=== PATIENT | male | born 1945 | race Asian ===

== ENCOUNTER 2017-12-26 11:36 | Inpatient (IN) | payer MEDICARE, MEDICAID ==
[~2017-12-26] VITALS: Ht 157.5 cm; Wt 74.1 kg
[2017-12-26] MEDS: AMIODARONE HCL 900 MG in DEXTROSE 500 ML IV SCH (00:30)
[~2017-12-26 11:36] MED LIST: ALBU0.084; PRED1PAK11; WARF5INJ PO
[2017-12-26 12:36] LABS: Basophils # (auto) 0 uL; Basophils % (auto) 0.8 % (0.0-2.0); Eosinophils # (auto) 0.3 uL; Eosinophils % (auto) 6.2 % (0.0-7.0); Hematocrit 49.1 % (41.0-53.0); Hemoglobin 15.8 g/dL (13.5-17.5); Lymphocytes % (auto) 20.2 % (10.0-50.0); Mean Corpuscular Hemoglobin 27.2 pg (28.0-32.0); Mean Corpuscular Hgb Conc. 32.1 g/dL (32.0-36.0); Mean Corpuscular Volume 84.6 fL (80.0-100.0); Monocytes # (auto) 0.4 uL; Monocytes % (auto) 8.4 % (0.0-12.0); Neutrophils % (auto) 64.4 % (37.0-80.0); Platelet Count (auto) 153 10^3/uL (140-450); Red Cell Distribution Width 17.9 % (11.8-14.3); White Blood Cell 4.7 10^3/uL (4.4-10.8)
[2017-12-26 12:52] LABS: Albumin 3.3 g/dL (3.4-5.0); BUN/Creatinine Ratio 10.7; Bilirubin, Total 1.7 mg/dL (0.2-1.0); Calcium 7.9 mg/dL (8.5-10.1); Magnesium 2.3 mg/dL (1.6-2.6); Potassium 3.7 mmol/L (3.5-5.1); Total Protein 7.4 g/dL (6.4-8.2)
[2017-12-26] MEDS ORDERED: SODIUM CHLORIDE 0.9% 500 ML IVB ONE (14:16)
[2017-12-26] MEDS ORDERED: cefTRIAXone 1GM/10ml IVPUSH 10 ML IV ONE (14:30)
[2017-12-26 14:39] LABS: Urine Bacteria NONE SEEN /hpf (None Seen); Urine Blood Negative /uL (Negative); Urine Mucus FEW (None Seen); Urine WBC 1 /hpf (0 - 3)
[2017-12-26] MEDS ORDERED: ALBUTEROL SULF 2.5 MG/0.5ML(0.5%) NEB SOLN NEB PRN (14:45)
[2017-12-26] MEDS ORDERED: OSELTAMIVIR 75 MG CAP PO ONE (14:45)
[2017-12-26] MEDS ORDERED: PROMETHAZINE HCL 25 MG/ML 1ML IV PRN (14:45)
[2017-12-26] MEDS ORDERED: LACTULOSE 20Gm/30ML SOLN PO PRN (14:45)
[2017-12-26] MEDS ORDERED: DEXTROSE (50%) 50ML SYRG IV PRN (14:45)
[2017-12-26] MEDS ORDERED: MORPHINE SULF INJ 2 MG/ML SYRINGE 1ML IV PRN ×2 (14:45→15:45)
[2017-12-26] MEDS ORDERED: TEMAZEPAM 15 MG CAP PO PRN (14:45)
[2017-12-26] MEDS ORDERED: NITROGLYCERIN 0.4 MG SL TAB SL PRN (14:45)
[2017-12-26] MEDS ORDERED: ACETAMINOPHEN 500 MG TAB PO PRN (14:45)
[2017-12-26] MEDS ORDERED: LORazepam 0.5 MG TAB PO PRN (14:45)
[2017-12-26] MEDS ORDERED: DILTIAZEM HCL 25 MG/5 ML VIAL IV ONE (15:00)
[2017-12-26 15:11] LABS: INR 1.48 (0.9-1.15); Partial Thromboplastin Time 33.8 sec (22.64-33.71); Prothrombin Time 16.2 sec (9.37-12.3)
[2017-12-26] MEDS ORDERED: CARVEDILOL 3.125 MG TAB PO ONE (15:15)
[2017-12-26] MEDS: CARVEDILOL 3.125 MG TAB PO SCH ×2 (15:51→22:28)
[2017-12-26] MEDS: SODIUM CHLORIDE 0.9% 1,000 ML IV SCH (15:54)
[2017-12-26] MEDS: methylPREDNISolone SOD SUCC 40 MG/ML VL IV SCH (15:54)
[2017-12-26] MEDS: FUROSEMIDE 40 MG/4 ML VIAL IV SCH (15:55)
[2017-12-26] MEDS: POTASSIUM CHL 20 Meq TABLET PO SCH (15:55)
[2017-12-26] MEDS: ENOXAPARIN SOD 40 MG/0.4 ML SYRINGE SC SCH (15:56)
[2017-12-26] MEDS: ENALAPRIL MALEATE 2.5 MG TAB PO SCH (16:02)
[2017-12-26] MEDS: AZITHROMYCIN 500MG/ 250ML 250 ML IV SCH (16:02)
[2017-12-26] MEDS ORDERED: WARFARIN SODIUM 2 MG TAB PO ONE (17:00)
[2017-12-26] MEDS ORDERED: AMIODARONE HCL 900 MG in DEXTROSE 500 ML IV SCH (17:26)
[2017-12-26] MEDS ORDERED: AMIODARONE HCL 150 MG in D5W 5% 100 ML IV ONE (17:30)
[2017-12-26] MEDS: IPRATROPIUM BROM 0.5 MG/2.5ML INH SOL NEB SCH (18:27)
[2017-12-26] MEDS: ALBUTEROL SULF 2.5 MG/0.5ML(0.5%) NEB SOLN NEB SCH (18:27)
[2017-12-26] MEDS: ACCU-CHEK COMFORT CURVE STRIP VI SCH (18:40)
[2017-12-26] MEDS ORDERED: CARVEDILOL 3.125 MG TAB PO SCH (22:00)
[2017-12-26] MEDS: OSELTAMIVIR 75 MG CAP PO SCH (22:00)
[2017-12-27] VITALS (29 sets, daily range): BP systolic 56–120; BP diastolic 41–92
[2017-12-27] MEDS: IPRATROPIUM BROM 0.5 MG/2.5ML INH SOL NEB SCH ×4 (00:12→18:00)
[2017-12-27] MEDS: ALBUTEROL SULF 2.5 MG/0.5ML(0.5%) NEB SOLN NEB SCH ×4 (00:12→18:00)
[2017-12-27] MEDS: MIDAZOLAM DRIP 50 mg/50mL 50 ML IV SCH ×3 (02:00→22:15)
[2017-12-27] MEDS: methylPREDNISolone SOD SUCC 40 MG/ML VL IV SCH (02:45)
[2017-12-27] MEDS: SODIUM CHLORIDE 0.9% 1,000 ML IV SCH (04:08)
[2017-12-27] MEDS: ACCU-CHEK COMFORT CURVE STRIP VI SCH ×4 (06:00→17:57)
[2017-12-27 06:02] LABS: INR 1.63 (0.9-1.15); Partial Thromboplastin Time 30.3 sec (22.64-33.71); Prothrombin Time 17.8 sec (9.37-12.3)
[2017-12-27 06:21] LABS: BUN/Creatinine Ratio 9.6; Bilirubin, Total 1.7 mg/dL (0.2-1.0); Calcium 7.7 mg/dL (8.5-10.1); Potassium 4.6 mmol/L (3.5-5.1); Total Protein 6.5 g/dL (6.4-8.2)
[2017-12-27] MEDS ORDERED: cefTRIAXone 1GM/10ml IVPUSH 10 ML IV SCH (09:00)
[2017-12-27] MEDS: OSELTAMIVIR 75 MG CAP PO SCH (10:00)
[2017-12-27] MEDS: FUROSEMIDE 40 MG/4 ML VIAL IV SCH ×2 (10:00→12:30)
[2017-12-27] MEDS: ENOXAPARIN SOD 40 MG/0.4 ML SYRINGE SC SCH (10:00)
[2017-12-27] MEDS ORDERED: PANTOPRAZOLE 40 MG TAB PO SCH (10:00)
[2017-12-27] MEDS: AZITHROMYCIN 500MG/ 250ML 250 ML IV SCH (10:25)
[2017-12-27] MEDS: CARVEDILOL 3.125 MG TAB PO SCH ×2 (10:26→22:00)
[2017-12-27] MEDS: POTASSIUM CHL 20 Meq TABLET PO SCH (10:27)
[2017-12-27] MEDS: ENALAPRIL MALEATE 2.5 MG TAB PO SCH (10:30)
[2017-12-27] MEDS ORDERED: MIDAZOLAM HCL 5 MG/ML-1ML VIAL ONE (14:04)
[2017-12-27] MEDS ORDERED: MIDAZOLAM HCL 5 MG/ML-1ML VIAL IV ONE ×2 (14:15→14:30)
[2017-12-27] MEDS ORDERED: NOREPINEPHRINE 8 MG/250ML KIT 250 ML IV ONE (14:21)
[2017-12-27] MEDS ORDERED: MIDAZOLAM DRIP 50 mg/50mL 50 ML IV SCH (14:24)
[2017-12-27] MEDS ORDERED: SODIUM CHLORIDE 0.9% 1,000 ML IV SCH (14:30)
[2017-12-27] MEDS: NOREPINEPHRINE 8 MG/250ML KIT 250 ML IV SCH (14:45)
[2017-12-27] MEDS ORDERED: PROPOFOL 100 ML IV ONE (15:02)
[2017-12-27] MEDS ORDERED: FAMOTIDINE (10MG/ML) 2ML VL IV ONE (15:15)
[2017-12-27] MEDS ORDERED: WARFARIN SODIUM 2 MG TAB PO ONE (17:00)
[2017-12-27] MEDS ORDERED: ENOXAPARIN SOD 80 MG/0.8ML SYRINGE SC ONE ×2 (18:15)
[2017-12-27] MEDS: PROPOFOL 100 ML IV SCH (21:45)
[2017-12-27] MEDS: NITROGLYCERIN 2% OINT 1GM PKG TD SCH ×2 (22:00→23:00)
[2017-12-27] MEDS ORDERED: NITROGLYCERIN 2% OINT 1GM PKG TD ONE (23:06)
[2017-12-27] MEDS: AMIODARONE HCL 900 MG in DEXTROSE 500 ML IV SCH (23:26)
[2017-12-28] VITALS (96 sets, daily range): BP systolic 55–162; BP diastolic 32–114
[2017-12-28] MEDS: AMIODARONE HCL 900 MG in DEXTROSE 500 ML IV SCH (00:33)
[2017-12-28] MEDS: NITROGLYCERIN 2% OINT 1GM PKG TD SCH ×7 (01:00→21:45)
[2017-12-28] MEDS: MIDAZOLAM DRIP 50 mg/50mL 50 ML IV SCH ×3 (03:00→22:00)
[2017-12-28 04:28] LABS: Partial Thromboplastin Time 45.9 sec (22.64-33.71); Prothrombin Time 44.2 sec (9.37-12.3)
[2017-12-28] MEDS: ACCU-CHEK COMFORT CURVE STRIP VI SCH ×2 (06:22)
[2017-12-28] MEDS: IPRATROPIUM BROM 0.5 MG/2.5ML INH SOL NEB SCH ×4 (06:24→19:09)
[2017-12-28] MEDS: ALBUTEROL SULF 2.5 MG/0.5ML(0.5%) NEB SOLN NEB SCH ×2 (06:25)
[2017-12-28 08:55] LABS: Basophils # (auto) 0 uL; Basophils % (auto) 0.4 % (0.0-2.0); Eosinophils # (auto) 0 uL; Eosinophils % (auto) 0.2 % (0.0-7.0); Hematocrit 48.2 % (41.0-53.0); Hemoglobin 16.1 g/dL (13.5-17.5); Lymphocytes # (auto) 1.1 uL; Lymphocytes % (auto) 11.3 % (10.0-50.0); Mean Corpuscular Hemoglobin 27.5 pg (28.0-32.0); Mean Corpuscular Hgb Conc. 33.4 g/dL (32.0-36.0); Mean Corpuscular Volume 82.5 fL (80.0-100.0); Monocytes # (auto) 0.9 uL; Monocytes % (auto) 8.7 % (0.0-12.0); Neutrophils # (auto) 7.8 uL; Neutrophils % (auto) 79.4 % (37.0-80.0); Nucleated Red Blood Cells % 0.5 %; Platelet Count (auto) 158 10^3/uL (140-450); Red Blood Cells 5.84 10^6/uL (4.5-5.90); Red Cell Distribution Width 16.9 % (11.8-14.3); White Blood Cell 9.8 10^3/uL (4.4-10.8)
[2017-12-28 09:10] LABS: Albumin 2.9 g/dL (3.4-5.0); BUN/Creatinine Ratio 10.5; Bilirubin, Total 1.1 mg/dL (0.2-1.0); Calcium 8.1 mg/dL (8.5-10.1); Potassium 4.2 mmol/L (3.5-5.1); Total Protein 6.5 g/dL (6.4-8.2)
[2017-12-28] MEDS ORDERED: FAMOTIDINE (10MG/ML) 2ML VL IV SCH (10:00)
[2017-12-28] MEDS ORDERED: ENOXAPARIN SOD 80 MG/0.8ML SYRINGE SC SCH (10:00)
[2017-12-28] MEDS: FREE WATER GT SCH ×4 (10:00→21:45)
[2017-12-28] MEDS ORDERED: BISACODYL 10 MG RECT SUPP PR PRN (10:30)
[2017-12-28] MEDS ORDERED: BISACODYL 10 MG RECT SUPP PR ONE (10:30)
[2017-12-28] MEDS ORDERED: POTASSIUM CHL 10% (20 MEQ/15ML) 15ml ORAL SOLN GT ONE (10:45)
[2017-12-28] MEDS ORDERED: PANTOPRAZOLE 40 MG/10 ML VIAL IV ONE (10:45)
[2017-12-28] MEDS: BUMETANIDE (0.25 MG/ML) INJ 10ML IV SCH ×2 (10:50→18:00)
[2017-12-28] MEDS: LEVALBUTEROL HCL 1.25 MG/3 ML NEB NEB SCH ×2 (11:45→14:00)
[2017-12-28] MEDS: NOREPINEPHRINE 8 MG/250ML KIT 250 ML IV SCH (14:30)
[2017-12-28] MEDS: PROPOFOL 100 ML IV SCH (15:00)
[2017-12-28] MEDS: methylPREDNISolone SOD SUCC 40 MG/ML VL IV SCH ×2 (19:25→23:57)
[2017-12-28] MEDS: HYDROcodone-ACET 5/325MG TAB PO PRN (22:29)
[2017-12-29] VITALS (94 sets, daily range): BP systolic 85–161; BP diastolic 46–89
[2017-12-29] MEDS: IPRATROPIUM BROM 0.5 MG/2.5ML INH SOL NEB SCH ×4 (00:23→18:45)
[2017-12-29] MEDS: NITROGLYCERIN 2% OINT 1GM PKG TD SCH ×6 (00:34→21:00)
[2017-12-29] MEDS: PROPOFOL 100 ML IV SCH (00:35)
[2017-12-29] MEDS: FREE WATER GT SCH ×6 (02:00→22:00)
[2017-12-29 03:50] LABS: Basophils # (auto) 0 uL; Eosinophils # (auto) 0 uL; Hemoglobin 16.3 g/dL (13.5-17.5); Monocytes # (auto) 0.1 uL
[2017-12-29 03:53] LABS: Lymphocytes # (auto) 0.7 uL; Mean Corpuscular Hemoglobin 27.3 pg (28.0-32.0); Mean Corpuscular Hgb Conc. 33.2 g/dL (32.0-36.0); Mean Corpuscular Volume 82.2 fL (80.0-100.0); Monocytes % (auto) 1.8 % (0.0-12.0); Neutrophils # (auto) 6.1 uL; Neutrophils % (auto) 88.2 % (37.0-80.0); Platelet Count (auto) 151 10^3/uL (140-450); Red Blood Cells 5.96 10^6/uL (4.5-5.90); Red Cell Distribution Width 16.6 % (11.8-14.3)
[2017-12-29 04:14] LABS: Partial Thromboplastin Time 43.5 sec (22.64-33.71); Prothrombin Time 82.3 sec (9.37-12.3)
[2017-12-29 04:18] LABS: INR 7.4 (0.9-1.15)
[2017-12-29 04:24] LABS: Albumin 2.8 g/dL (3.4-5.0); BUN/Creatinine Ratio 10.4; Calcium 7.8 mg/dL (8.5-10.1); Potassium 4.5 mmol/L (3.5-5.1); Total Protein 6.5 g/dL (6.4-8.2)
[2017-12-29] MEDS: MIDAZOLAM DRIP 50 mg/50mL 50 ML IV SCH (05:38)
[2017-12-29] MEDS: methylPREDNISolone SOD SUCC 40 MG/ML VL IV SCH ×3 (05:40→18:19)
[2017-12-29] MEDS: LEVALBUTEROL HCL 1.25 MG/3 ML NEB NEB SCH ×2 (05:52→18:45)
[2017-12-29] MEDS: BUMETANIDE (0.25 MG/ML) INJ 10ML IV SCH (05:56)
[2017-12-29] MEDS ORDERED: PHYTONADIONE (VIT K)10 MG/ML 1ML VIAL SUBCUT ONE (06:15)
[2017-12-29] MEDS ORDERED: ENOXAPARIN SOD 80 MG/0.8ML SYRINGE SC SCH (10:00)
[2017-12-29] MEDS ORDERED: POTASSIUM CHL 10% (20 MEQ/15ML) 15ml ORAL SOLN GT SCH (10:00)
[2017-12-29] MEDS: PANTOPRAZOLE 40 MG/10 ML VIAL IV SCH (10:30)
[2017-12-29 12:29] LABS: Prothrombin Time 63.5 sec (9.37-12.3)
[2017-12-29 12:31] LABS: INR 5.72 (0.9-1.15)
[2017-12-29] MEDS ORDERED: PHYTONADIONE ORAL Susp 10 mg/10ml PO ONE (13:30)
[2017-12-29] MEDS: NOREPINEPHRINE 8 MG/250ML KIT 250 ML IV SCH (14:30)
[2017-12-29] MEDS: AMIODARONE HCL 900 MG in DEXTROSE 500 ML IV SCH (23:26)
[2017-12-30] VITALS (62 sets, daily range): BP systolic 92–135; BP diastolic 30–90
[2017-12-30] MEDS: IPRATROPIUM BROM 0.5 MG/2.5ML INH SOL NEB SCH ×4 (00:20→19:55)
[2017-12-30] MEDS: FREE WATER GT SCH ×2 (02:00→06:00)
[2017-12-30 03:31] LABS: Basophils # (auto) 0 uL; Eosinophils # (auto) 0 uL; Hemoglobin 16.8 g/dL (13.5-17.5); Lymphocytes # (auto) 0.5 uL; Lymphocytes % (auto) 6.7 % (10.0-50.0); Mean Corpuscular Hemoglobin 27.2 pg (28.0-32.0); Mean Corpuscular Volume 81.8 fL (80.0-100.0); Monocytes # (auto) 0.2 uL; Red Blood Cells 6.19 10^6/uL (4.5-5.90); White Blood Cell 7.7 10^3/uL (4.4-10.8)
[2017-12-30 03:35] LABS: Hematocrit 50.7 % (41.0-53.0); Mean Corpuscular Hgb Conc. 33.2 g/dL (32.0-36.0); Monocytes % (auto) 3.2 % (0.0-12.0); Neutrophils % (auto) 90.1 % (37.0-80.0); Platelet Count (auto) 147 10^3/uL (140-450); Red Cell Distribution Width 16.8 % (11.8-14.3)
[2017-12-30 03:37] LABS: INR 1.41 (0.9-1.15); Partial Thromboplastin Time 36.9 sec (22.64-33.71); Prothrombin Time 15.4 sec (9.37-12.3)
[2017-12-30] MEDS: LEVALBUTEROL HCL 1.25 MG/3 ML NEB NEB SCH ×3 (05:41→19:55)
[2017-12-30] MEDS: methylPREDNISolone SOD SUCC 40 MG/ML VL IV SCH ×4 (06:00→18:13)
[2017-12-30 06:41] LABS: Albumin 2.8 g/dL (3.4-5.0); BUN/Creatinine Ratio 10.9; Bilirubin, Total 1.5 mg/dL (0.2-1.0); Calcium 7.9 mg/dL (8.5-10.1); Potassium 4.3 mmol/L (3.5-5.1); Total Protein 6.9 g/dL (6.4-8.2)
[2017-12-30] MEDS ORDERED: HYDR-4683 PO (09:13)
[2017-12-30] MEDS ORDERED: CHOL20007 OR (09:14)
[2017-12-30] MEDS ORDERED: FLUT250M2 INH (09:14)
[2017-12-30] MEDS: HYDROcodone-ACET 5/325MG TAB PO PRN (09:43)
[2017-12-30] MEDS: PANTOPRAZOLE 40 MG/10 ML VIAL IV SCH (09:43)
[2017-12-30] MEDS ORDERED: SODIUM CHLORIDE 0.9% 2,100 ML IV ONE (10:00)
[2017-12-30] MEDS ORDERED: FREE WATER GT SCH (10:00)
[2017-12-30] MEDS: MIDAZOLAM DRIP 50 mg/50mL 50 ML IV SCH (14:06)
[2017-12-30] MEDS: PROPOFOL 100 ML IV SCH (15:19)
[2017-12-31] VITALS: BP 102/71
[2017-12-31] MEDS: methylPREDNISolone SOD SUCC 40 MG/ML VL IV SCH ×2 (00:19→05:20)
[2017-12-31] MEDS: IPRATROPIUM BROM 0.5 MG/2.5ML INH SOL NEB SCH ×2 (01:02→05:57)
[2017-12-31 05:39] LABS: Basophils # (auto) 0 uL; Eosinophils # (auto) 0 uL; Hematocrit 49.3 % (41.0-53.0); Hemoglobin 16.3 g/dL (13.5-17.5); Lymphocytes # (auto) 0.4 uL; Mean Corpuscular Hemoglobin 27.5 pg (28.0-32.0); Mean Corpuscular Volume 83.2 fL (80.0-100.0); Monocytes # (auto) 0.3 uL; Monocytes % (auto) 4.2 % (0.0-12.0); Neutrophils # (auto) 5.9 uL; Neutrophils % (auto) 89.8 % (37.0-80.0); Nucleated Red Blood Cells % 0.1 %; Platelet Count (auto) 136 10^3/uL (140-450); Red Blood Cells 5.93 10^6/uL (4.5-5.90); Red Cell Distribution Width 16.1 % (11.8-14.3); White Blood Cell 6.6 10^3/uL (4.4-10.8)
[2017-12-31] MEDS: LEVALBUTEROL HCL 1.25 MG/3 ML NEB NEB SCH (05:57)
[2017-12-31 06:00] LABS: Albumin 2.6 g/dL (3.4-5.0); BUN/Creatinine Ratio 15.2; Bilirubin, Total 1.1 mg/dL (0.2-1.0); Calcium 7.4 mg/dL (8.5-10.1); Potassium 4.4 mmol/L (3.5-5.1); Total Protein 6.2 g/dL (6.4-8.2)
[2017-12-31] MEDS ORDERED: predniSONE 20 MG TAB PO SCH (10:00)
[2017-12-31] MEDS: PANTOPRAZOLE 40 MG TAB PO SCH (10:35)
[2017-12-31] MEDS: METOPROLOL TARTRATE 25 MG TAB PO SCH ×2 (10:38→22:30)
[2017-12-31 11:19] LABS: INR 1.22 (0.9-1.15); Partial Thromboplastin Time 31.5 sec (22.64-33.71); Prothrombin Time 13.3 sec (9.37-12.3)
[2017-12-31] MEDS: BUDESONIDE (INHALATION) 0.5 MG/2 ML NEB NEB SCH ×2 (11:29→22:24)
[2017-12-31 12:00] VITALS: BP 105/74
[2017-12-31] MEDS ORDERED: SODIUM CHLORIDE 0.9% 500 ML IV ONE (12:30)
[2017-12-31] MEDS ORDERED: IPRATROPIUM BROM 0.5 MG/2.5ML INH SOL NEB PRN (14:00)
[2017-12-31 16:00] VITALS: BP 104/75
[2017-12-31] MEDS: DIGOXIN (250MCG/ML) 2 ML AMPULE IV SCH ×2 (16:12→22:30)
[2017-12-31 20:00] VITALS: BP 104/70
[2018-01-01] VITALS: BP 104/66
[2018-01-01 03:49] VITALS: BP 134/73
[2018-01-01] MEDS: DIGOXIN (250MCG/ML) 2 ML AMPULE IV SCH (04:45)
[2018-01-01 05:27] LABS: BUN/Creatinine Ratio 19.1; Calcium 7.4 mg/dL (8.5-10.1); Potassium 4.4 mmol/L (3.5-5.1)
[2018-01-01] MEDS: BUDESONIDE (INHALATION) 0.5 MG/2 ML NEB NEB SCH ×2 (06:54→22:00)
[2018-01-01 08:00] VITALS: BP 134/79
[2018-01-01] MEDS ORDERED: DIGOXIN 0.125 MG TAB PO SCH (10:00)
[2018-01-01 10:17] LABS: INR 1.15 (0.9-1.15); Partial Thromboplastin Time 26.7 sec (22.64-33.71); Prothrombin Time 12.6 sec (9.37-12.3)
[2018-01-01] MEDS: PANTOPRAZOLE 40 MG TAB PO SCH (10:30)
[2018-01-01] MEDS: METOPROLOL SUCCINATE XL 50 MG TAB PO SCH (10:31)
[2018-01-01] MEDS: FUROSEMIDE 40 MG TAB PO SCH (10:32)
[2018-01-01 12:00] VITALS: BP 132/75
[2018-01-01] MEDS ORDERED: WARFARIN SODIUM 5 MG TAB PO ONE (17:00)
[2018-01-01 17:02] VITALS: BP 108/71
[2018-01-01] MEDS: LEVALBUTEROL HCL 1.25 MG/3 ML NEB NEB PRN (22:00)
[2018-01-01 22:17] VITALS: BP 129/84
[2018-01-02 02:23] VITALS: BP 129/84
[2018-01-02 04:52] VITALS: BP 126/80
[2018-01-02 07:23] LABS: Calcium 8.5 mg/dL (8.5-10.1); INR 1.16 (0.9-1.15); Partial Thromboplastin Time 29.2 sec (22.64-33.71); Potassium 4.1 mmol/L (3.5-5.1); Prothrombin Time 12.7 sec (9.37-12.3)
[2018-01-02 07:26] LABS: BUN/Creatinine Ratio 21.9
[2018-01-02] MEDS: BUDESONIDE (INHALATION) 0.5 MG/2 ML NEB NEB SCH ×2 (07:30→23:00)
[2018-01-02] MEDS: LEVALBUTEROL HCL 1.25 MG/3 ML NEB NEB PRN (07:32)
[2018-01-02 07:46] LABS: Basophils # (auto) 0 uL; Eosinophils # (auto) 0.2 uL; Eosinophils % (auto) 2.5 % (0.0-7.0); Hematocrit 55.5 % (41.0-53.0); Hemoglobin 17.8 g/dL (13.5-17.5); Lymphocytes % (auto) 9.8 % (10.0-50.0); Mean Corpuscular Hemoglobin 27.1 pg (28.0-32.0); Mean Corpuscular Volume 84.7 fL (80.0-100.0); Monocytes # (auto) 1.1 uL; Monocytes % (auto) 11.4 % (0.0-12.0); Neutrophils # (auto) 7.4 uL; Neutrophils % (auto) 76.3 % (37.0-80.0); Nucleated Red Blood Cells % 0.1 %; Platelet Count (auto) 105 10^3/uL (140-450); Red Blood Cells 6.55 10^6/uL (4.5-5.90); Red Cell Distribution Width 16.3 % (11.8-14.3); White Blood Cell 9.7 10^3/uL (4.4-10.8)
[2018-01-02] MEDS: METOPROLOL SUCCINATE XL 50 MG TAB PO SCH (08:26)
[2018-01-02 09:09] VITALS: BP 145/84
[2018-01-02] MEDS: FUROSEMIDE 40 MG TAB PO SCH (09:31)
[2018-01-02] MEDS: PANTOPRAZOLE 40 MG TAB PO SCH (09:32)
[2018-01-02] MEDS: MILK OF MAGNESIA 30ML SUSP PO ONE ×2 (13:00→13:11)
[2018-01-02] MEDS: SOD CHL 0.45% 1,000 ML IV SCH (13:05)
[2018-01-02] MEDS: DOCUSATE SOD 100 MG CAP PO SCH ×2 (13:12→22:00)
[2018-01-02 14:10] VITALS: BP 130/82
[2018-01-02] MEDS ORDERED: WARFARIN SODIUM 2 MG TAB PO ONE (17:00)
[2018-01-02 17:21] VITALS: BP 135/69
[2018-01-02 22:26] VITALS: BP 117/82
[2018-01-03 05:09] VITALS: BP 121/84
[2018-01-03 05:55] LABS: Basophils # (auto) 0 uL; Eosinophils # (auto) 0.6 uL; Hemoglobin 17.1 g/dL (13.5-17.5); Lymphocytes # (auto) 1.1 uL; Mean Corpuscular Hemoglobin 27.3 pg (28.0-32.0); Nucleated Red Blood Cells % 0.1 %
[2018-01-03 05:59] LABS: Eosinophils % (auto) 5.8 % (0.0-7.0); Hematocrit 52.9 % (41.0-53.0); Lymphocytes % (auto) 11.1 % (10.0-50.0); Mean Corpuscular Hgb Conc. 32.3 g/dL (32.0-36.0); Mean Corpuscular Volume 84.4 fL (80.0-100.0); Monocytes % (auto) 10.9 % (0.0-12.0); Neutrophils # (auto) 6.9 uL; Neutrophils % (auto) 72.2 % (37.0-80.0); Red Blood Cells 6.27 10^6/uL (4.5-5.90); White Blood Cell 9.5 10^3/uL (4.4-10.8)
[2018-01-03 06:01] LABS: INR 1.63 (0.9-1.15); Prothrombin Time 17.9 sec (9.37-12.3)
[2018-01-03 06:08] LABS: Potassium 3.9 mmol/L (3.5-5.1)
[2018-01-03 06:25] LABS: Platelet Count (auto) 96 10^3/uL (140-450)
[2018-01-03] MEDS: SOD CHL 0.45% 1,000 ML IV SCH (08:18)
[2018-01-03 08:20] LABS: Partial Thromboplastin Time 31.9 sec (22.64-33.71)
[2018-01-03] MEDS: METOPROLOL SUCCINATE XL 50 MG TAB PO SCH (08:24)
[2018-01-03 08:49] VITALS: BP 113/69
[2018-01-03] MEDS: DOCUSATE SOD 100 MG CAP PO SCH (09:41)
[2018-01-03] MEDS: PANTOPRAZOLE 40 MG TAB PO SCH (09:41)
[2018-01-03] MEDS: FUROSEMIDE 40 MG TAB PO SCH (09:42)
[2018-01-03] MEDS: BUDESONIDE (INHALATION) 0.5 MG/2 ML NEB NEB SCH ×2 (09:51→20:06)
[2018-01-03] MEDS ORDERED: DIGOXIN 0.25 MG TAB PO ONE ×2 (10:45→13:15)
[2018-01-03 11:54] VITALS: BP 92/65
[2018-01-03] MEDS ORDERED: METOPROLOL TARTRATE 50 MG TAB PO ONE (15:15)
[2018-01-03 15:48] VITALS: BP 100/62
[2018-01-03 16:23] VITALS: BP 112/74
[2018-01-03] MEDS ORDERED: WARFARIN SODIUM 2 MG TAB PO ONE (17:00)
== END 2018-01-03 20:25 | disposition home or self-care (01) | DRG 208 ==
LOC: ER 11:36 → TELE 11:37 → ICU WEST 12-27 22:52 → DOU IN ICU 12-30 19:32 → TELE-EAST 01-01 14:24
PROVIDERS: ADMIT Internal Medicine; ATTEND Internal Medicine
PROC: 5A09357 Assistance with Respiratory Ventilation, Less than 24 Consecutive Hours, Continuous Positive Airway Pressure (ICD-10-PCS; 2017-12-26)
PROC: 5A1945Z Respiratory Ventilation, 24-96 Consecutive Hours (ICD-10-PCS; principal; 2017-12-27)
PROC: 0BH17EZ Insertion of Endotracheal Airway into Trachea, Via Natural or Artificial Opening (ICD-10-PCS; 2017-12-27)
DX: J96.22 Acute and chronic respiratory failure with hypercapnia (principal); N17.0 Acute kidney failure with tubular necrosis; I50.43 Acute on chronic combined systolic (congestive) and diastolic (congestive) heart failure; E87.4 Mixed disorder of acid-base balance; E88.09 Other disorders of plasma-protein metabolism, not elsewhere classified; E11.65 Type 2 diabetes mellitus with hyperglycemia; D68.9 Coagulation defect, unspecified; I42.9 Cardiomyopathy, unspecified; N18.3 Chronic kidney disease, stage 3 (moderate); I13.0 Hypertensive heart and chronic kidney disease with heart failure and stage 1 through stage 4 chronic kidney disease, or unspecified chronic kidney disease; I47.1 Supraventricular tachycardia; R18.8 Other ascites; I48.0 Paroxysmal atrial fibrillation; J96.21 Acute and chronic respiratory failure with hypoxia; I25.10 Atherosclerotic heart disease of native coronary artery without angina pectoris; F41.9 Anxiety disorder, unspecified; G47.00 Insomnia, unspecified; J44.9 Chronic obstructive pulmonary disease, unspecified; I70.0 Atherosclerosis of aorta; I67.9 Cerebrovascular disease, unspecified; T45.515A Adverse effect of anticoagulants, initial encounter; K59.00 Constipation, unspecified; N40.0 Benign prostatic hyperplasia without lower urinary tract symptoms; Z82.49 Family history of ischemic heart disease and other diseases of the circulatory system; Z87.891 Personal history of nicotine dependence; Z79.01 Long term (current) use of anticoagulants; Z79.899 Other long term (current) drug therapy; Z86.711 Personal history of pulmonary embolism; Y92.89 Other specified places as the place of occurrence of the external cause
CPT/HCPCS: 31500; 36415; 36600; 51702; 71045; 74176; 76705; 80048; 80053; 80061; 81001; 82150; 82550; 82805; 82962; 83036; 83605; 83690; 83735; 83880; 84443; 84484; 85025; 85379; 85610; 85652; 85730; 87040; 87070; 87081; 87205; 87400; 93005; 93306; 93970; 94002; 94003; 94640; 94660; 94761; 96361; 96374; 96375; 97163; C9113; J2250; J2704; J3430; J3490; J7060

== ENCOUNTER 2018-04-16 17:13 | Inpatient (IN) | payer MEDICARE, MEDICAID ==
[~2018-04-16] VITALS: Ht 167.6 cm; Wt 72.9 kg
[~2018-04-16 17:13] MED LIST changes: +CHOL20007 OR; +FLUT250M2 INH; +HYDR-4683 PO; -PRED1PAK11
[2018-04-16 17:57] LABS: Basophils # (auto) 0.1 uL; Eosinophils # (auto) 0.3 uL; Hemoglobin 16.4 g/dL (13.5-17.5); Lymphocytes # (auto) 1.7 uL; Monocytes # (auto) 0.8 uL; Neutrophils # (auto) 4.7 uL; Red Cell Distribution Width 18.2 % (11.8-14.3); White Blood Cell 7.6 10^3/uL (4.4-10.8)
[2018-04-16 18:11] LABS: Basophils % (auto) 0.9 % (0.0-2.0); Hematocrit 51.1 % (41.0-53.0); Lymphocytes % (auto) 22.8 % (10.0-50.0); Mean Corpuscular Hemoglobin 25.8 pg (28.0-32.0); Mean Corpuscular Hgb Conc. 32.1 g/dL (32.0-36.0); Mean Corpuscular Volume 80.4 fL (80.0-100.0); Monocytes % (auto) 10.5 % (0.0-12.0); Neutrophils % (auto) 61.8 % (37.0-80.0); Nucleated Red Blood Cells % 0.1 %; Platelet Count (auto) 163 10^3/uL (140-450); Red Blood Cells 6.36 10^6/uL (4.5-5.90)
[2018-04-16 18:15] LABS: Albumin 3.1 g/dL (3.4-5.0); BUN/Creatinine Ratio 14.6; Calcium 8.2 mg/dL (8.5-10.1); INR 1.93 (0.9-1.15); Partial Thromboplastin Time 31.5 sec (22.64-33.71); Potassium 4.3 mmol/L (3.5-5.1); Prothrombin Time 21.2 sec (9.37-12.3)
[2018-04-16 18:26] LABS: Bilirubin, Total 1.8 mg/dL (0.2-1.0); Total Protein 7.6 g/dL (6.4-8.2)
[2018-04-16] MEDS ORDERED: OXYMETAZOLINE HCL 0.05 % NASAL SPRAY 15ML ONE (19:15)
[2018-04-16] MEDS ORDERED: FUROSEMIDE 20 MG/2 ML VIAL IV ONE (22:00)
[2018-04-17] VITALS (10 sets, daily range): BP systolic 107–123; BP diastolic 71–90
[2018-04-17] MEDS ORDERED: MORPHINE SULFATE 4 MG/ML SYR/VIAL IV PRN (00:15)
[2018-04-17] MEDS ORDERED: ONDANSETRON HCL 4 MG/2 ML VIAL IV PRN (00:15)
[2018-04-17] MEDS ORDERED: METOPROLOL TARTRATE 50 MG TAB PO ONE (00:15)
[2018-04-17] MEDS ORDERED: ACETAMINOPHEN 325 MG TAB PO PRN (00:15)
[2018-04-17] MEDS ORDERED: NITROGLYCERIN 0.4 MG SL TAB SL PRN (00:15)
[2018-04-17] MEDS ORDERED: HYDROcodone-ACET 5/325MG TAB PO PRN (00:15)
[2018-04-17] MEDS ORDERED: COCAINE HCL 4% TOP SOL 4ML TOP ONE ×2 (00:37→01:00)
[2018-04-17] MEDS ORDERED: DIGOXIN (250MCG/ML) 2 ML AMPULE IV ONE (01:15)
[2018-04-17 01:31] LABS: Hemoglobin 15.1 g/dL (13.5-17.5)
[2018-04-17 01:33] LABS: Hematocrit 47.7 % (41.0-53.0)
[2018-04-17] MEDS ORDERED: AMIODARONE HCL 150 MG in D5W 5% 100 ML IV ONE (03:15)
[2018-04-17] MEDS ORDERED: AMIODARONE HCL 900 MG in DEXTROSE 500 ML IV SCH (03:25)
[2018-04-17] MEDS ORDERED: AMIODARONE HCL (50 MG/ ML) 3 ML VIAL IV ONE (04:05)
[2018-04-17] MEDS: AMIODARONE HCL 900 MG in DEXTROSE 500 ML IV SCH (09:43)
[2018-04-17] MEDS: DIGOXIN 0.25 MG TAB PO SCH (10:00)
[2018-04-17] MEDS: ASPirin 81 mg TAB PO SCH (10:00)
[2018-04-17] MEDS ORDERED: METOPROLOL TARTRATE 50 MG TAB PO SCH (10:00)
[2018-04-17] MEDS: PANTOPRAZOLE 40 MG TAB PO SCH (10:40)
[2018-04-17] MEDS ORDERED: BUMETANIDE (0.25MG/ML) 4 ML VIAL IV ONE (10:45)
[2018-04-17] MEDS: FUROSEMIDE 40 MG TAB PO SCH (11:10)
[2018-04-17] MEDS ORDERED: WARFARIN SODIUM 2.5 MG TAB PO ONE (17:00)
[2018-04-17] MEDS: METOPROLOL TARTRATE 25 MG TAB PO SCH (22:21)
[2018-04-18] MEDS ORDERED: AMIODARONE HCL 900 MG IV ONE (02:09)
[2018-04-18] MEDS: AMIODARONE HCL 900 MG in DEXTROSE 500 ML IV SCH (02:10)
[2018-04-18 07:24] LABS: Basophils # (auto) 0 uL; Basophils % (auto) 0.4 % (0.0-2.0); Eosinophils # (auto) 0.2 uL; Eosinophils % (auto) 1.8 % (0.0-7.0); Hemoglobin 13.6 g/dL (13.5-17.5); Lymphocytes # (auto) 1.1 uL; Lymphocytes % (auto) 11.6 % (10.0-50.0); Mean Corpuscular Hemoglobin 25.4 pg (28.0-32.0); Mean Corpuscular Hgb Conc. 31.5 g/dL (32.0-36.0); Mean Corpuscular Volume 80.4 fL (80.0-100.0); Monocytes # (auto) 1.3 uL; Monocytes % (auto) 13.9 % (0.0-12.0); Neutrophils # (auto) 6.7 uL; Neutrophils % (auto) 72.3 % (37.0-80.0); Nucleated Red Blood Cells % 0.1 %; Platelet Count (auto) 141 10^3/uL (140-450); Red Blood Cells 5.35 10^6/uL (4.5-5.90); Red Cell Distribution Width 17.5 % (11.8-14.3); White Blood Cell 9.3 10^3/uL (4.4-10.8)
[2018-04-18 07:30] LABS: INR 1.94 (0.9-1.15)
[2018-04-18 08:11] LABS: Albumin 3.1 g/dL (3.4-5.0); BUN/Creatinine Ratio 15.7; Bilirubin, Total 2.1 mg/dL (0.2-1.0); Calcium 8.1 mg/dL (8.5-10.1); Potassium 4.3 mmol/L (3.5-5.1); Total Protein 7.3 g/dL (6.4-8.2)
[2018-04-18] MEDS: FUROSEMIDE 40 MG TAB PO SCH (10:00)
[2018-04-18] MEDS: ASPirin 81 mg TAB PO SCH (10:50)
[2018-04-18] MEDS: AMIODARONE HCL 200 MG TAB PO SCH ×2 (10:50→21:44)
[2018-04-18] MEDS: DIGOXIN 0.25 MG TAB PO SCH (10:50)
[2018-04-18] MEDS: PANTOPRAZOLE 40 MG TAB PO SCH (10:51)
[2018-04-18] MEDS: METOPROLOL TARTRATE 25 MG TAB PO SCH ×2 (10:52→21:44)
[2018-04-18] MEDS ORDERED: CHOL200039 PO (15:49)
[2018-04-18] MEDS ORDERED: ACE3T PO (15:49)
[2018-04-18] MEDS ORDERED: METO-158 PO (15:49)
[2018-04-18] MEDS ORDERED: PANT40TA2 PO (15:49)
[2018-04-18] MEDS ORDERED: FAMO-12 PO (15:49)
[2018-04-18] MEDS ORDERED: DIGO1TAB37 PO (15:49)
[2018-04-18] MEDS ORDERED: WARF4TAB33 PO (15:49)
[2018-04-18] MEDS ORDERED: FURO40TA4 PO (15:49)
[2018-04-18] MEDS ORDERED: WARF5TAB71 PO (15:49)
[2018-04-18 16:32] VITALS: BP 102/68
[2018-04-18] MEDS ORDERED: WARFARIN SODIUM 1 MG TAB PO ONE (17:00)
[2018-04-18 22:00] VITALS: BP 119/80
[2018-04-19] VITALS (8 sets, daily range): BP systolic 99–117; BP diastolic 50–72
[2018-04-19 06:36] LABS: Basophils # (auto) 0 uL; Eosinophils # (auto) 0.1 uL; Lymphocytes # (auto) 1.1 uL; Monocytes # (auto) 1.1 uL; Nucleated Red Blood Cells % 0.1 %; White Blood Cell 8.9 10^3/uL (4.4-10.8)
[2018-04-19 06:39] LABS: Basophils % (auto) 0.6 % (0.0-2.0); Eosinophils % (auto) 1.3 % (0.0-7.0); Hematocrit 41.7 % (41.0-53.0); Hemoglobin 13.6 g/dL (13.5-17.5); Lymphocytes % (auto) 12.3 % (10.0-50.0); Mean Corpuscular Hemoglobin 26.3 pg (28.0-32.0); Mean Corpuscular Hgb Conc. 32.7 g/dL (32.0-36.0); Mean Corpuscular Volume 80.4 fL (80.0-100.0); Monocytes % (auto) 12.1 % (0.0-12.0); Neutrophils # (auto) 6.6 uL; Neutrophils % (auto) 73.7 % (37.0-80.0); Platelet Count (auto) 132 10^3/uL (140-450); Red Blood Cells 5.19 10^6/uL (4.5-5.90); Red Cell Distribution Width 17.4 % (11.8-14.3)
[2018-04-19 06:41] LABS: INR 2.4 (0.9-1.15); Partial Thromboplastin Time 35.5 sec (23.78-33.04); Prothrombin Time 24.4 sec (9.27-12.13)
[2018-04-19 06:46] LABS: BUN/Creatinine Ratio 14.4; Calcium 8.1 mg/dL (8.5-10.1); Potassium 4.4 mmol/L (3.5-5.1)
[2018-04-19 06:48] LABS: Bilirubin, Total 1.9 mg/dL (0.2-1.0); Total Protein 7.2 g/dL (6.4-8.2)
[2018-04-19] MEDS: FUROSEMIDE 40 MG TAB PO SCH (10:00)
[2018-04-19] MEDS: METOPROLOL TARTRATE 25 MG TAB PO SCH ×2 (10:00→21:50)
[2018-04-19] MEDS ORDERED: acetaZOLAMIDE SODIUM 500 MG VL IV ONE (10:00)
[2018-04-19] MEDS: ASPirin 81 mg TAB PO SCH (10:41)
[2018-04-19] MEDS: PANTOPRAZOLE 40 MG TAB PO SCH (10:41)
[2018-04-19] MEDS: DIGOXIN 0.25 MG TAB PO SCH (10:41)
[2018-04-19] MEDS: AMIODARONE HCL 200 MG TAB PO SCH ×2 (10:42→21:51)
[2018-04-19] MEDS ORDERED: WARFARIN SODIUM 1 MG TAB PO ONE (17:00)
[2018-04-20] VITALS (7 sets, daily range): BP systolic 105–120; BP diastolic 65–73
[2018-04-20 07:00] LABS: Eosinophils # (auto) 0.2 uL; Eosinophils % (auto) 1.9 % (0.0-7.0); Hemoglobin 13.3 g/dL (13.5-17.5); Mean Corpuscular Volume 81.5 fL (80.0-100.0); Nucleated Red Blood Cells % 0.1 %
[2018-04-20 07:03] LABS: Basophils # (auto) 0 uL; Basophils % (auto) 0.4 % (0.0-2.0); Hematocrit 42.5 % (41.0-53.0); Lymphocytes % (auto) 11.8 % (10.0-50.0); Mean Corpuscular Hemoglobin 25.5 pg (28.0-32.0); Mean Corpuscular Hgb Conc. 31.3 g/dL (32.0-36.0); Monocytes # (auto) 1.1 uL; Monocytes % (auto) 12.5 % (0.0-12.0); Neutrophils # (auto) 6.5 uL; Neutrophils % (auto) 73.4 % (37.0-80.0); Platelet Count (auto) 144 10^3/uL (140-450); Red Blood Cells 5.22 10^6/uL (4.5-5.90); Red Cell Distribution Width 17.8 % (11.8-14.3); White Blood Cell 8.8 10^3/uL (4.4-10.8)
[2018-04-20 07:16] LABS: INR 2.7 (0.9-1.15); Partial Thromboplastin Time 39.3 sec (23.78-33.04); Potassium 4.6 mmol/L (3.5-5.1); Prothrombin Time 27.3 sec (9.27-12.13)
[2018-04-20 07:22] LABS: BUN/Creatinine Ratio 13.8; Calcium 8.3 mg/dL (8.5-10.1)
[2018-04-20 07:32] LABS: Bilirubin, Total 1.7 mg/dL (0.2-1.0); Total Protein 7.5 g/dL (6.4-8.2)
[2018-04-20] MEDS: METOPROLOL TARTRATE 25 MG TAB PO SCH ×2 (09:44→22:00)
[2018-04-20] MEDS: AMIODARONE HCL 200 MG TAB PO SCH ×2 (09:45→22:00)
[2018-04-20] MEDS: ASPirin 81 mg TAB PO SCH (09:45)
[2018-04-20] MEDS: FUROSEMIDE 40 MG TAB PO SCH (09:45)
[2018-04-20] MEDS: DIGOXIN 0.25 MG TAB PO SCH (09:46)
[2018-04-20] MEDS: PANTOPRAZOLE 40 MG TAB PO SCH (09:46)
[2018-04-21 05:00] VITALS: BP 111/72
[2018-04-21 06:06] LABS: INR 2.93 (0.9-1.15); Partial Thromboplastin Time 39.8 sec (23.78-33.04); Prothrombin Time 29.5 sec (9.27-12.13)
[2018-04-21 08:00] VITALS: BP 121/71
[2018-04-21 09:00] VITALS: BP 121/77
[2018-04-21] MEDS: FUROSEMIDE 40 MG TAB PO SCH (09:51)
[2018-04-21] MEDS: PANTOPRAZOLE 40 MG TAB PO SCH (09:51)
[2018-04-21] MEDS: ASPirin 81 mg TAB PO SCH (09:52)
[2018-04-21] MEDS: DIGOXIN 0.25 MG TAB PO SCH (09:53)
[2018-04-21] MEDS: AMIODARONE HCL 200 MG TAB PO SCH ×2 (09:53→22:17)
[2018-04-21] MEDS: METOPROLOL TARTRATE 25 MG TAB PO SCH ×2 (09:58→22:17)
[2018-04-21 13:00] VITALS: BP 116/72
[2018-04-21 16:56] VITALS: BP 130/86
[2018-04-21 22:00] VITALS: BP 127/83
[2018-04-22 05:00] VITALS: BP 122/79
[2018-04-22 06:44] LABS: INR 3.06 (0.9-1.15); Prothrombin Time 30.7 sec (9.27-12.13)
[2018-04-22 08:00] VITALS: BP 122/79
[2018-04-22] MEDS: AMIODARONE HCL 200 MG TAB PO SCH ×2 (10:36→22:00)
[2018-04-22] MEDS: PANTOPRAZOLE 40 MG TAB PO SCH (10:36)
[2018-04-22] MEDS: DIGOXIN 0.25 MG TAB PO SCH (10:37)
[2018-04-22] MEDS: FUROSEMIDE 40 MG TAB PO SCH (10:37)
[2018-04-22] MEDS: ASPirin 81 mg TAB PO SCH (10:38)
[2018-04-22] MEDS: METOPROLOL TARTRATE 25 MG TAB PO SCH ×2 (10:38→22:00)
[2018-04-22 12:00] VITALS: BP 92/49
[2018-04-22 17:00] VITALS: BP 96/66
[2018-04-22 22:20] VITALS: BP 96/66
[2018-04-22 22:51] VITALS: BP 88/55
[2018-04-23 02:52] VITALS: BP 88/55
[2018-04-23 05:38] VITALS: BP 105/57
[2018-04-23 05:53] LABS: INR 2.88 (0.9-1.15); Partial Thromboplastin Time 40.8 sec (23.78-33.04)
[2018-04-23 08:00] VITALS: BP 115/68
[2018-04-23 08:37] VITALS: BP 115/68
[2018-04-23] MEDS: PANTOPRAZOLE 40 MG TAB PO SCH (10:11)
[2018-04-23] MEDS: ASPirin 81 mg TAB PO SCH (10:12)
[2018-04-23] MEDS: AMIODARONE HCL 200 MG TAB PO SCH (10:12)
[2018-04-23] MEDS: METOPROLOL TARTRATE 25 MG TAB PO SCH (10:13)
[2018-04-23] MEDS: DIGOXIN 0.25 MG TAB PO SCH (10:13)
[2018-04-23] MEDS: FUROSEMIDE 40 MG TAB PO SCH (10:13)
[2018-04-23 12:22] VITALS: BP 98/58
[2018-04-23 16:44] VITALS: BP 112/55
[2018-04-23] MEDS ORDERED: WARFARIN SODIUM 1 MG TAB PO ONE (17:00)
== END 2018-04-23 18:20 | disposition home or self-care (01) | DRG 280 ==
LOC: ER 17:13 → EDBD 17:13 → TELE 17:14 → TELE-WESTW 04-18 14:19
PROVIDERS: ADMIT Nurse Practitioner; ATTEND Family Medicine
PROC: 30233L1 Transfusion of Nonautologous Fresh Plasma into Peripheral Vein, Percutaneous Approach (ICD-10-PCS; 2018-04-17)
PROC: 30233K1 Transfusion of Nonautologous Frozen Plasma into Peripheral Vein, Percutaneous Approach (ICD-10-PCS; 2018-04-17)
PROC: 5A09357 Assistance with Respiratory Ventilation, Less than 24 Consecutive Hours, Continuous Positive Airway Pressure (ICD-10-PCS; principal; 2018-04-19)
PROC: 5A09357 Assistance with Respiratory Ventilation, Less than 24 Consecutive Hours, Continuous Positive Airway Pressure (ICD-10-PCS; 2018-04-22)
DX: I13.0 Hypertensive heart and chronic kidney disease with heart failure and stage 1 through stage 4 chronic kidney disease, or unspecified chronic kidney disease (principal); I21.4 Non-ST elevation (NSTEMI) myocardial infarction; I50.43 Acute on chronic combined systolic (congestive) and diastolic (congestive) heart failure; J96.21 Acute and chronic respiratory failure with hypoxia; I48.2 Chronic atrial fibrillation; D68.59 Other primary thrombophilia; N18.3 Chronic kidney disease, stage 3 (moderate); Z99.81 Dependence on supplemental oxygen; J96.22 Acute and chronic respiratory failure with hypercapnia; J44.9 Chronic obstructive pulmonary disease, unspecified; R04.0 Epistaxis; Z79.01 Long term (current) use of anticoagulants; Z82.49 Family history of ischemic heart disease and other diseases of the circulatory system; Z87.891 Personal history of nicotine dependence; Z91.19 Patient's noncompliance with other medical treatment and regimen
CPT/HCPCS: 30901; 36415; 36600; 71045; 80053; 80162; 82805; 83735; 83880; 84484; 85014; 85018; 85025; 85610; 85730; 86850; 86900; 86901; 93005; 93306; 94660; 96365; 96375; J7060

== ENCOUNTER 2021-03-15 17:40 | Inpatient (IN) | payer MEDICARE, MEDICAID ==
[~2021-03-15] VITALS: Ht 170.2 cm; Wt 60.0 kg
[2021-03-15 06:00] VITALS: BP 131/65
[~2021-03-15 17:40] MED LIST changes: +ACE3T PO; -ALBU0.084; +CHOL200039 PO; -CHOL20007 OR; +DIGO1TAB37 PO; +FAMO-12 PO; +FURO40TA4 PO; -HYDR-4683 PO; +METO-158 PO; +PANT40TA2 PO; +WARF4TAB33 PO; -WARF5INJ PO; +WARF5TAB71 PO
[2021-03-15] MEDS ORDERED: AMIODARONE 450mg/250ml AE 250 ML IV ONE (17:46)
[2021-03-15] MEDS ORDERED: NOREPINEPHRINE 8 MG/250ML KIT 250 ML IV ONE (17:52)
[2021-03-15] MEDS ORDERED: EPINEPHrine HCL 250 ML IV ONE (18:05)
[2021-03-15] MEDS ORDERED: SODIUM BICARBONATE 8.4% INJ 50ML SYRINGE ONE (18:05)
[2021-03-15] MEDS ORDERED: SODIUM BICARBONATE 8.4 % INJ 50ML VIAL IV ONE (18:11)
[2021-03-15] MEDS ORDERED: AMIODARONE 450mg/250ml AE 250 ML IV SCH (18:15)
[2021-03-15] MEDS ORDERED: PIPERACILLIN-TAZOB 3.375GM 100 ML IV ONE (18:15)
[2021-03-15] MEDS ORDERED: SODIUM BICARB 50ML SYR 100 ML in SODIUM CHLORIDE 0.9% 1,000 ML IV ONE (18:30)
[2021-03-15 18:38] LABS: Hematocrit 51.5 % (41.0-53.0); Hemoglobin 15.7 g/dL (13.5-17.5); Mean Corpuscular Hgb Conc. 30.4 g/dL (32.0-36.0); White Blood Cell 6.7 10^3/uL (4.4-10.8)
[2021-03-15 18:40] LABS: Mean Corpuscular Hemoglobin 26.6 pg (28.0-32.0); Mean Corpuscular Volume 87.5 fL (80.0-100.0); Platelet Count (auto) 91 10^3/uL (140-450); Red Blood Cells 5.89 10^6/uL (4.5-5.90); Red Cell Distribution Width 16.4 % (11.8-14.3)
[2021-03-15 18:48] LABS: Band Neutrophils % (manual) 0; Basophils % (manual) 0 (0.0-2.0); Blast Cells 0; Calcium 9.8 mg/dL (8.5-10.1); Magnesium 2.6 mg/dL (1.6-2.6); Metamyelocytes % 0; Myelocytes % 0; Potassium 4.7 mmol/L (3.5-5.1); Promyelocytes % 0
[2021-03-15 18:51] LABS: BUN/Creatinine Ratio 10.7; Bilirubin, Total 0.9 mg/dL (0.2-1.0); Total Protein 6.3 g/dL (6.4-8.2)
[2021-03-15 19:14] LABS: INR 1.38 (0.9-1.15)
[2021-03-15 19:27] LABS: Partial Thromboplastin Time 82.8 sec (23.0-31.2)
[2021-03-15] MEDS: DOPamine 1600MCG/ML D5W 250 ML IV SCH ×2 (19:30→20:13)
[2021-03-15] MEDS: MIDAZOLAM DRIP 50 mg/50mL 50 ML IV SCH (19:50)
[2021-03-15 19:52] LABS: Eosinophils % (manual) 13 (0-7); Lymphocytes % (manual) 54 (10.0-50.0); Monocytes % (manual) 3 (0-12); Reactive Lymphocytes 5
[2021-03-15 20:10] VITALS: BP 112/48
[2021-03-15 21:26] VITALS: BP 112/48
[2021-03-15] MEDS: NOREPINEPHRINE 8 MG/250ML KIT 250 ML IV SCH (23:20)
[2021-03-15] MEDS ORDERED: VANCOMYCIN PER PHARMACY 0 MG IV SCH (23:45)
[2021-03-16] VITALS (95 sets, daily range): BP systolic 77–167; BP diastolic 39–94
[2021-03-16] MEDS ORDERED: ONDANSETRON HCL 4 MG/2 ML VIAL IV PRN
[2021-03-16] MEDS ORDERED: NITROGLYCERIN 0.4 MG SL TAB SL PRN
[2021-03-16] MEDS ORDERED: MORPHINE SULF INJ 2 MG/ML SYRINGE 1ML IV PRN
[2021-03-16] MEDS ORDERED: VANCOMYCIN 1GM/250ML 250 ML IV ONE (00:30)
[2021-03-16 01:46] LABS: Urine Bacteria MANY /hpf (None Seen); Urine Blood 3+ /uL (Negative); Urine Hyaline Cast MOD /lpf (0 - 2); Urine Specific Gravity 1.019 (1.001-1.035); Urine WBC 176 /hpf (0 - 3); Urine WBC Clumps PRESENT /hpf (None Seen)
[2021-03-16 04:51] LABS: Basophils # (auto) 0 10 ^3/uL (0-0.2); Basophils % (auto) 0.1 % (0.0-2.0); Eosinophils # (auto) 0 10 ^3/uL (0-0.8); Hematocrit 50.3 % (41.0-53.0); Hemoglobin 15.8 g/dL (13.5-17.5); Lymphocytes # (auto) 0.3 10 ^3/uL (0.4-5.4); Lymphocytes % (auto) 2.2 % (10.0-50.0); Mean Corpuscular Hemoglobin 26.8 pg (28.0-32.0); Mean Corpuscular Hgb Conc. 31.5 g/dL (32.0-36.0); Mean Corpuscular Volume 85.2 fL (80.0-100.0); Monocytes # (auto) 0.9 10 ^3/uL (0-1.3); Monocytes % (auto) 5.5 % (0.0-12.0); Neutrophils # (auto) 14.5 10 ^3/uL (1.6-8.6); Neutrophils % (auto) 92.2 % (37.0-80.0); Nucleated Red Blood Cells % 0.1 %; Platelet Count (auto) 88 10^3/uL (140-450); Red Cell Distribution Width 16.3 % (11.8-14.3); White Blood Cell 15.7 10^3/uL (4.4-10.8)
[2021-03-16 04:53] LABS: Lactic Acid w/Reflex 4.3 mmol/L (0.4-2.0)
[2021-03-16 05:09] LABS: Albumin 2.5 g/dL (3.4-5.0); Anion Gap 11 (5-15); Blood Urea Nitrogen 29 mg/dL (7-18); Calcium 7.8 mg/dL (8.5-10.1); Carbon Dioxide 24 mmol/L (21-32); Chloride 107 mmol/L (98-107); Glucose 213 mg/dL (74-106); Potassium 4.9 mmol/L (3.5-5.1); Sodium 142 mmol/L (136-145)
[2021-03-16 05:11] LABS: Alanine Aminotransferase 44 U/L (16-61); Alkaline Phosphatase 77 U/L (45-117); Aspartate Aminotransferase 85 U/L (15-37); Bilirubin, Total 1.7 mg/dL (0.2-1.0); GFR African American 42 mL/min; GFR Non-African American 35 mL/min; Total Protein 5.5 g/dL (6.4-8.2)
[2021-03-16 05:18] LABS: BUN/Creatinine Ratio 14.5
[2021-03-16] MEDS: PIPERACILLIN-TAZOB 3.375GM 100 ML IV SCH ×3 (05:54→21:09)
[2021-03-16] MEDS: FUROSEMIDE 20 MG/2 ML VIAL IV SCH ×2 (05:54→18:11)
[2021-03-16] MEDS: SODIUM CHLOR 0.9% PF (SALINE LOCK) 10ML VIAL/SYR IV SCH ×3 (05:54→21:09)
[2021-03-16 07:21] LABS: INR 1.38 (0.9-1.15); Partial Thromboplastin Time 30.6 sec (23.0-31.2)
[2021-03-16] MEDS ORDERED: HEPARIN SODIUM (PORCINE) 5000 UNITS/ML 1ML VIAL SC SCH (10:00)
[2021-03-16] MEDS: FAMOTIDINE (10MG/ML) 2ML VL IV SCH (10:08)
[2021-03-16] MEDS: MIDAZOLAM DRIP 50 mg/50mL 50 ML IV SCH ×3 (12:25→22:03)
[2021-03-16] MEDS: DOBUTamine 1000MCG/ML 250 ML IV SCH (12:52)
[2021-03-16] MEDS: NOREPINEPHRINE 8 MG/250ML KIT 250 ML IV SCH (18:00)
[2021-03-16] MEDS: ACETAMINOPHEN 650 mg PER 20.3 mL UD PO PRN (21:09)
[2021-03-16] MEDS: IPRATROPIUM BROM 0.5 MG/2.5ML INH SOL NEB SCH (22:21)
[2021-03-16] MEDS: ALBUTEROL SULF 2.5 MG/0.5ML(0.5%) NEB SOLN NEB SCH (22:22)
[2021-03-16] MEDS: BUDESONIDE (INHALATION) 0.5 MG/2 ML NEB NEB SCH (22:22)
[2021-03-17] VITALS (105 sets, daily range): BP systolic 93–141; BP diastolic 46–79
[2021-03-17] MEDS: ALBUTEROL SULF 2.5 MG/0.5ML(0.5%) NEB SOLN NEB SCH ×5 (02:52→22:10)
[2021-03-17] MEDS: IPRATROPIUM BROM 0.5 MG/2.5ML INH SOL NEB SCH ×5 (02:52→22:10)
[2021-03-17] MEDS: MIDAZOLAM DRIP 50 mg/50mL 50 ML IV SCH ×5 (03:22→22:50)
[2021-03-17 04:23] LABS: Basophils # (auto) 0 10 ^3/uL (0-0.2); Basophils % (auto) 0.1 % (0.0-2.0); Eosinophils # (auto) 0 10 ^3/uL (0-0.8); Lymphocytes # (auto) 0.4 10 ^3/uL (0.4-5.4); Mean Corpuscular Hemoglobin 26.7 pg (28.0-32.0); Neutrophils # (auto) 14.3 10 ^3/uL (1.6-8.6); White Blood Cell 15.4 10^3/uL (4.4-10.8)
[2021-03-17 04:26] LABS: Hematocrit 45.2 % (41.0-53.0); Hemoglobin 14.7 g/dL (13.5-17.5); Lymphocytes % (auto) 2.7 % (10.0-50.0); Mean Corpuscular Hgb Conc. 32.5 g/dL (32.0-36.0); Mean Corpuscular Volume 82.2 fL (80.0-100.0); Monocytes # (auto) 0.8 10 ^3/uL (0-1.3); Monocytes % (auto) 4.9 % (0.0-12.0); Neutrophils % (auto) 92.3 % (37.0-80.0); Nucleated Red Blood Cells % 0.2 %; Platelet Count (auto) 77 10^3/uL (140-450); Red Cell Distribution Width 15.6 % (11.8-14.3)
[2021-03-17 04:50] LABS: Calcium 7.6 mg/dL (8.5-10.1); Potassium 4.2 mmol/L (3.5-5.1)
[2021-03-17 04:58] LABS: Albumin 2.5 g/dL (3.4-5.0); BUN/Creatinine Ratio 16.5; Total Protein 5.4 g/dL (6.4-8.2)
[2021-03-17] MEDS: SODIUM CHLOR 0.9% PF (SALINE LOCK) 10ML VIAL/SYR IV SCH ×3 (05:48→22:00)
[2021-03-17] MEDS: FUROSEMIDE 20 MG/2 ML VIAL IV SCH ×2 (05:48→18:15)
[2021-03-17] MEDS: PIPERACILLIN-TAZOB 3.375GM 100 ML IV SCH (05:49)
[2021-03-17] MEDS ORDERED: DIGOXIN (250MCG/ML) 2 ML AMPULE IV ONE (08:00)
[2021-03-17] MEDS ORDERED: PROPOFOL 100 ML IV ONE (09:32)
[2021-03-17] MEDS: PROPOFOL 100 ML IV SCH (09:50)
[2021-03-17] MEDS: BUDESONIDE (INHALATION) 0.5 MG/2 ML NEB NEB SCH ×2 (10:00→22:10)
[2021-03-17] MEDS: DIGOXIN (250MCG/ML) 2 ML AMPULE IV SCH ×3 (10:23→22:39)
[2021-03-17] MEDS: FAMOTIDINE (10MG/ML) 2ML VL IV SCH (10:23)
[2021-03-17] MEDS: DOBUTamine 1000MCG/ML 250 ML IV SCH (10:30)
[2021-03-17] MEDS ORDERED: cefTRIAXone 1GM/50ML D5W 50 ML IV ONE (11:45)
[2021-03-17] MEDS ORDERED: VANCOMYCIN 1GM/250ML 250 ML IV ONE (12:00)
[2021-03-17] MEDS: ACETAMINOPHEN 650 mg PER 20.3 mL UD PO PRN (13:15)
[2021-03-17] MEDS: NOREPINEPHRINE 8 MG/250ML KIT 250 ML IV SCH (15:00)
[2021-03-18] VITALS (106 sets, daily range): BP systolic 88–138; BP diastolic 43–73
[2021-03-18] MEDS: IPRATROPIUM BROM 0.5 MG/2.5ML INH SOL NEB SCH ×6 (02:13→22:25)
[2021-03-18] MEDS: ALBUTEROL SULF 2.5 MG/0.5ML(0.5%) NEB SOLN NEB SCH ×6 (02:13→22:25)
[2021-03-18 04:16] LABS: Basophils # (auto) 0 10 ^3/uL (0-0.2); Basophils % (auto) 0.1 % (0.0-2.0); Eosinophils # (auto) 0.1 10 ^3/uL (0-0.8); Eosinophils % (auto) 0.9 % (0.0-7.0); Hematocrit 45.6 % (41.0-53.0); Hemoglobin 14.9 g/dL (13.5-17.5); Lymphocytes # (auto) 0.5 10 ^3/uL (0.4-5.4); Lymphocytes % (auto) 3.3 % (10.0-50.0); Mean Corpuscular Hgb Conc. 32.7 g/dL (32.0-36.0); Mean Corpuscular Volume 82.4 fL (80.0-100.0); Monocytes # (auto) 0.9 10 ^3/uL (0-1.3); Monocytes % (auto) 6.1 % (0.0-12.0); Neutrophils # (auto) 12.8 10 ^3/uL (1.6-8.6); Neutrophils % (auto) 89.6 % (37.0-80.0); Platelet Count (auto) 67 10^3/uL (140-450); Red Blood Cells 5.54 10^6/uL (4.5-5.90); Red Cell Distribution Width 15.9 % (11.8-14.3); White Blood Cell 14.3 10^3/uL (4.4-10.8)
[2021-03-18 04:47] LABS: Albumin 2.5 g/dL (3.4-5.0); Calcium 7.5 mg/dL (8.5-10.1); Potassium 4.5 mmol/L (3.5-5.1)
[2021-03-18 04:50] LABS: BUN/Creatinine Ratio 17.5; Bilirubin, Total 1.5 mg/dL (0.2-1.0); Total Protein 5.8 g/dL (6.4-8.2)
[2021-03-18] MEDS: SODIUM CHLOR 0.9% PF (SALINE LOCK) 10ML VIAL/SYR IV SCH ×3 (06:00→22:01)
[2021-03-18] MEDS: BUDESONIDE (INHALATION) 0.5 MG/2 ML NEB NEB SCH ×2 (06:34→18:45)
[2021-03-18] MEDS: FUROSEMIDE 20 MG/2 ML VIAL IV SCH ×2 (07:26→18:00)
[2021-03-18] MEDS: PROPOFOL 100 ML IV SCH (09:30)
[2021-03-18] MEDS: FAMOTIDINE (10MG/ML) 2ML VL IV SCH (10:52)
[2021-03-18] MEDS: cefTRIAXone 1GM/50ML D5W 50 ML IV SCH (10:52)
[2021-03-18] MEDS ORDERED: VANCOMYCIN 500 MG in D5W 5% 100 ML IV ONE (14:00)
[2021-03-18] MEDS: NOREPINEPHRINE 8 MG/250ML KIT 250 ML IV SCH (18:00)
[2021-03-18] MEDS: ACETAMINOPHEN 650 mg PER 20.3 mL UD PO PRN (20:48)
[2021-03-19] VITALS (108 sets, daily range): BP systolic 94–134; BP diastolic 50–72
[2021-03-19] MEDS: IPRATROPIUM BROM 0.5 MG/2.5ML INH SOL NEB SCH ×6 (02:27→21:59)
[2021-03-19] MEDS: ALBUTEROL SULF 2.5 MG/0.5ML(0.5%) NEB SOLN NEB SCH ×6 (02:27→21:59)
[2021-03-19 05:25] LABS: Basophils # (auto) 0 10 ^3/uL (0-0.2); Eosinophils # (auto) 0 10 ^3/uL (0-0.8); Eosinophils % (auto) 0.2 % (0.0-7.0); Lymphocytes # (auto) 0.5 10 ^3/uL (0.4-5.4); Mean Corpuscular Hemoglobin 26.4 pg (28.0-32.0); Neutrophils # (auto) 10.8 10 ^3/uL (1.6-8.6); White Blood Cell 12.3 10^3/uL (4.4-10.8)
[2021-03-19 05:28] LABS: Basophils % (auto) 0.2 % (0.0-2.0); Hemoglobin 15.1 g/dL (13.5-17.5); Lymphocytes % (auto) 3.9 % (10.0-50.0); Mean Corpuscular Hgb Conc. 32.1 g/dL (32.0-36.0); Mean Corpuscular Volume 82.2 fL (80.0-100.0); Monocytes % (auto) 8.2 % (0.0-12.0); Neutrophils % (auto) 87.5 % (37.0-80.0); Nucleated Red Blood Cells % 0.2 %; Platelet Count (auto) 76 10^3/uL (140-450); Red Blood Cells 5.72 10^6/uL (4.5-5.90); Red Cell Distribution Width 15.9 % (11.8-14.3)
[2021-03-19 05:44] LABS: Albumin 2.5 g/dL (3.4-5.0); Potassium 4.3 mmol/L (3.5-5.1)
[2021-03-19 05:48] LABS: BUN/Creatinine Ratio 22.7; Bilirubin, Total 1.8 mg/dL (0.2-1.0)
[2021-03-19] MEDS: SODIUM CHLOR 0.9% PF (SALINE LOCK) 10ML VIAL/SYR IV SCH ×3 (06:00→21:39)
[2021-03-19] MEDS: FUROSEMIDE 20 MG/2 ML VIAL IV SCH ×2 (06:00→17:44)
[2021-03-19] MEDS: PROPOFOL 100 ML IV SCH (09:30)
[2021-03-19] MEDS: cefTRIAXone 1GM/50ML D5W 50 ML IV SCH (09:52)
[2021-03-19] MEDS: FAMOTIDINE (10MG/ML) 2ML VL IV SCH (09:52)
[2021-03-19] MEDS ORDERED: VANCOMYCIN 500 MG in D5W 5% 100 ML IV ONE (10:00)
[2021-03-19] MEDS: SODIUM CHLORIDE 0.9% 1,000 ML IV SCH ×2 (10:34→11:57)
[2021-03-19] MEDS: BUDESONIDE (INHALATION) 0.5 MG/2 ML NEB NEB SCH ×2 (12:00→21:59)
[2021-03-19] MEDS: NOREPINEPHRINE 8 MG/250ML KIT 250 ML IV SCH (18:00)
[2021-03-19] MEDS: MIDAZOLAM DRIP 50 mg/50mL 50 ML IV SCH (18:00)
[2021-03-20] VITALS (92 sets, daily range): BP systolic 100–136; BP diastolic 50–73
[2021-03-20] MEDS: IPRATROPIUM BROM 0.5 MG/2.5ML INH SOL NEB SCH ×6 (02:11→22:16)
[2021-03-20] MEDS: ALBUTEROL SULF 2.5 MG/0.5ML(0.5%) NEB SOLN NEB SCH ×6 (02:11→22:16)
[2021-03-20 04:39] LABS: Basophils # (auto) 0 10 ^3/uL (0-0.2); Basophils % (auto) 0.3 % (0.0-2.0); Eosinophils # (auto) 0.2 10 ^3/uL (0-0.8); Eosinophils % (auto) 2.6 % (0.0-7.0); Hematocrit 44.6 % (41.0-53.0); Hemoglobin 14.5 g/dL (13.5-17.5); Lymphocytes # (auto) 0.4 10 ^3/uL (0.4-5.4); Lymphocytes % (auto) 4.9 % (10.0-50.0); Mean Corpuscular Hgb Conc. 32.6 g/dL (32.0-36.0); Mean Corpuscular Volume 82.8 fL (80.0-100.0); Monocytes # (auto) 0.8 10 ^3/uL (0-1.3); Monocytes % (auto) 10.1 % (0.0-12.0); Neutrophils # (auto) 6.8 10 ^3/uL (1.6-8.6); Neutrophils % (auto) 82.1 % (37.0-80.0); Nucleated Red Blood Cells % 0.2 %; Platelet Count (auto) 81 10^3/uL (140-450); Red Blood Cells 5.38 10^6/uL (4.5-5.90); Red Cell Distribution Width 16.2 % (11.8-14.3); White Blood Cell 8.3 10^3/uL (4.4-10.8)
[2021-03-20 04:56] LABS: Albumin 2.3 g/dL (3.4-5.0); Calcium 7.6 mg/dL (8.5-10.1); Potassium 4.1 mmol/L (3.5-5.1)
[2021-03-20 04:59] LABS: BUN/Creatinine Ratio 28.5; Bilirubin, Total 1.4 mg/dL (0.2-1.0); Total Protein 5.6 g/dL (6.4-8.2)
[2021-03-20] MEDS: FUROSEMIDE 20 MG/2 ML VIAL IV SCH ×2 (06:00→17:30)
[2021-03-20] MEDS: SODIUM CHLOR 0.9% PF (SALINE LOCK) 10ML VIAL/SYR IV SCH ×3 (06:08→21:55)
[2021-03-20] MEDS: BUDESONIDE (INHALATION) 0.5 MG/2 ML NEB NEB SCH ×2 (06:35→19:22)
[2021-03-20] MEDS: PROPOFOL 100 ML IV SCH (07:44)
[2021-03-20] MEDS: cefTRIAXone 1GM/50ML D5W 50 ML IV SCH (09:30)
[2021-03-20] MEDS: FAMOTIDINE (10MG/ML) 2ML VL IV SCH (09:30)
[2021-03-20] MEDS ORDERED: VANCOMYCIN 750mg/250ml 250 ML IV ONE (10:00)
[2021-03-20] MEDS: SODIUM CHLORIDE 0.9% 1,000 ML IV SCH ×2 (12:55→17:30)
[2021-03-20] MEDS: NOREPINEPHRINE 8 MG/250ML KIT 250 ML IV SCH (18:00)
[2021-03-20] MEDS: MIDAZOLAM DRIP 50 mg/50mL 50 ML IV SCH (18:00)
[2021-03-21] VITALS (97 sets, daily range): BP systolic 82–152; BP diastolic 33–73
[2021-03-21] MEDS: ALBUTEROL SULF 2.5 MG/0.5ML(0.5%) NEB SOLN NEB SCH ×6 (02:24→22:25)
[2021-03-21] MEDS: IPRATROPIUM BROM 0.5 MG/2.5ML INH SOL NEB SCH ×6 (02:24→22:26)
[2021-03-21] MEDS: ACETAMINOPHEN 650 mg PER 20.3 mL UD PO PRN (05:22)
[2021-03-21] MEDS: SODIUM CHLORIDE 0.9% 1,000 ML IV SCH (06:07)
[2021-03-21] MEDS: FUROSEMIDE 20 MG/2 ML VIAL IV SCH ×2 (06:07→18:01)
[2021-03-21] MEDS: BUDESONIDE (INHALATION) 0.5 MG/2 ML NEB NEB SCH ×2 (06:13→18:21)
[2021-03-21 06:19] LABS: Basophils # (auto) 0 10 ^3/uL (0-0.2); Eosinophils # (auto) 0.1 10 ^3/uL (0-0.8); Hemoglobin 15.3 g/dL (13.5-17.5); Monocytes # (auto) 1.3 10 ^3/uL (0-1.3); Nucleated Red Blood Cells % 0.1 %
[2021-03-21 06:22] LABS: Basophils % (auto) 0.2 % (0.0-2.0); Eosinophils % (auto) 0.6 % (0.0-7.0); Lymphocytes # (auto) 0.6 10 ^3/uL (0.4-5.4); Lymphocytes % (auto) 5.7 % (10.0-50.0); Mean Corpuscular Hemoglobin 26.9 pg (28.0-32.0); Mean Corpuscular Hgb Conc. 32.5 g/dL (32.0-36.0); Mean Corpuscular Volume 82.8 fL (80.0-100.0); Monocytes % (auto) 12.7 % (0.0-12.0); Neutrophils # (auto) 8.6 10 ^3/uL (1.6-8.6); Neutrophils % (auto) 80.8 % (37.0-80.0); Platelet Count (auto) 91 10^3/uL (140-450); Red Blood Cells 5.68 10^6/uL (4.5-5.90); Red Cell Distribution Width 16.1 % (11.8-14.3); White Blood Cell 10.6 10^3/uL (4.4-10.8)
[2021-03-21] MEDS: PROPOFOL 100 ML IV SCH (06:30)
[2021-03-21 06:39] LABS: Potassium 4.6 mmol/L (3.5-5.1)
[2021-03-21 06:52] LABS: Albumin 2.7 g/dL (3.4-5.0); Bilirubin, Total 1.5 mg/dL (0.2-1.0); Total Protein 6.5 g/dL (6.4-8.2)
[2021-03-21] MEDS: SODIUM CHLOR 0.9% PF (SALINE LOCK) 10ML VIAL/SYR IV SCH ×3 (07:27→22:00)
[2021-03-21] MEDS: FAMOTIDINE (10MG/ML) 2ML VL IV SCH (10:04)
[2021-03-21] MEDS: Jevity 1.2 Cal/Fiber 1 Liter GT SCH (10:04)
[2021-03-21] MEDS: PHENYLEPHRINE INJ 40 MG in SODIUM CHL 0.9% 246 ML IV SCH (11:15)
[2021-03-21] MEDS: VANCOMYCIN 1GM/250ML 250 ML IV SCH (14:42)
[2021-03-21] MEDS: CEFEPIME 1 GM in SODIUM CHL 0.9% 50 ML IV SCH ×2 (15:55→22:44)
[2021-03-21] MEDS: MIDAZOLAM DRIP 50 mg/50mL 50 ML IV SCH (18:00)
[2021-03-21] MEDS: NOREPINEPHRINE 8 MG/250ML KIT 250 ML IV SCH (18:00)
[2021-03-22] VITALS (107 sets, daily range): BP systolic 99–142; BP diastolic 48–78
[2021-03-22] MEDS: SODIUM CHLORIDE 0.9% 1,000 ML IV SCH ×3 (01:09→19:00)
[2021-03-22] MEDS: IPRATROPIUM BROM 0.5 MG/2.5ML INH SOL NEB SCH ×6 (02:33→22:40)
[2021-03-22] MEDS: ALBUTEROL SULF 2.5 MG/0.5ML(0.5%) NEB SOLN NEB SCH ×6 (02:33→22:40)
[2021-03-22] MEDS: PHENYLEPHRINE INJ 40 MG in SODIUM CHL 0.9% 246 ML IV SCH ×2 (03:55→20:35)
[2021-03-22] MEDS: SODIUM CHLOR 0.9% PF (SALINE LOCK) 10ML VIAL/SYR IV SCH ×3 (05:53→21:38)
[2021-03-22] MEDS: CEFEPIME 1 GM in SODIUM CHL 0.9% 50 ML IV SCH ×3 (05:53→23:15)
[2021-03-22] MEDS: FUROSEMIDE 20 MG/2 ML VIAL IV SCH ×2 (05:53→18:40)
[2021-03-22] MEDS: BUDESONIDE (INHALATION) 0.5 MG/2 ML NEB NEB SCH ×2 (06:02→22:40)
[2021-03-22] MEDS: FAMOTIDINE (10MG/ML) 2ML VL IV SCH (10:51)
[2021-03-22] MEDS: PROPOFOL 100 ML IV SCH (11:08)
[2021-03-22] MEDS: VANCOMYCIN 1GM/250ML 250 ML IV SCH (14:35)
[2021-03-22] MEDS: MIDAZOLAM DRIP 50 mg/50mL 50 ML IV SCH (18:00)
[2021-03-22] MEDS: NOREPINEPHRINE 8 MG/250ML KIT 250 ML IV SCH (18:00)
[2021-03-22] MEDS: Jevity 1.2 Cal/Fiber 1 Liter GT SCH (19:00)
[2021-03-23] VITALS (108 sets, daily range): BP systolic 89–127; BP diastolic 47–73
[2021-03-23] MEDS: ACETAMINOPHEN 650 mg PER 20.3 mL UD PO PRN ×2 (01:24→22:16)
[2021-03-23] MEDS: IPRATROPIUM BROM 0.5 MG/2.5ML INH SOL NEB SCH ×6 (02:06→22:13)
[2021-03-23] MEDS: ALBUTEROL SULF 2.5 MG/0.5ML(0.5%) NEB SOLN NEB SCH ×6 (02:06→22:13)
[2021-03-23 04:36] LABS: Basophils # (auto) 0 10 ^3/uL (0-0.2); Basophils % (auto) 0.1 % (0.0-2.0); Hemoglobin 14.5 g/dL (13.5-17.5); Lymphocytes # (auto) 0.6 10 ^3/uL (0.4-5.4); Monocytes # (auto) 1.4 10 ^3/uL (0-1.3); Monocytes % (auto) 11.9 % (0.0-12.0); Neutrophils # (auto) 8.9 10 ^3/uL (1.6-8.6); Red Cell Distribution Width 16.1 % (11.8-14.3)
[2021-03-23 04:39] LABS: Eosinophils # (auto) 0.6 10 ^3/uL (0-0.8); Eosinophils % (auto) 5.4 % (0.0-7.0); Hematocrit 44.6 % (41.0-53.0); Lymphocytes % (auto) 4.9 % (10.0-50.0); Mean Corpuscular Hemoglobin 26.8 pg (28.0-32.0); Mean Corpuscular Hgb Conc. 32.5 g/dL (32.0-36.0); Mean Corpuscular Volume 82.7 fL (80.0-100.0); Neutrophils % (auto) 77.7 % (37.0-80.0); Platelet Count (auto) 118 10^3/uL (140-450); White Blood Cell 11.4 10^3/uL (4.4-10.8)
[2021-03-23] MEDS: PROPOFOL 100 ML IV SCH ×2 (04:40→15:30)
[2021-03-23 04:56] LABS: Potassium 3.8 mmol/L (3.5-5.1)
[2021-03-23 05:10] LABS: Albumin 2.5 g/dL (3.4-5.0); BUN/Creatinine Ratio 29.8; Bilirubin, Total 1.3 mg/dL (0.2-1.0); Calcium 7.9 mg/dL (8.5-10.1); Total Protein 6.3 g/dL (6.4-8.2)
[2021-03-23] MEDS: SODIUM CHLOR 0.9% PF (SALINE LOCK) 10ML VIAL/SYR IV SCH ×3 (05:48→22:03)
[2021-03-23] MEDS: FUROSEMIDE 20 MG/2 ML VIAL IV SCH ×2 (05:57→18:16)
[2021-03-23] MEDS: CEFEPIME 1 GM in SODIUM CHL 0.9% 50 ML IV SCH ×3 (05:58→23:00)
[2021-03-23] MEDS: BUDESONIDE (INHALATION) 0.5 MG/2 ML NEB NEB SCH ×2 (06:13→22:13)
[2021-03-23] MEDS: FAMOTIDINE (10MG/ML) 2ML VL IV SCH (10:53)
[2021-03-23] MEDS: SODIUM CHLORIDE 0.9% 1,000 ML IV SCH (10:53)
[2021-03-23] MEDS: PHENYLEPHRINE INJ 40 MG in SODIUM CHL 0.9% 246 ML IV SCH (13:15)
[2021-03-23] MEDS: VANCOMYCIN 1GM/250ML 250 ML IV SCH (14:30)
[2021-03-23] MEDS: MIDAZOLAM DRIP 50 mg/50mL 50 ML IV SCH (17:59)
[2021-03-23] MEDS: NOREPINEPHRINE 8 MG/250ML KIT 250 ML IV SCH (17:59)
[2021-03-24] VITALS (108 sets, daily range): BP systolic 88–132; BP diastolic 48–76
[2021-03-24] MEDS: Jevity 1.2 Cal/Fiber 1 Liter GT SCH ×2 (00:49→15:30)
[2021-03-24] MEDS: PROPOFOL 100 ML IV SCH ×2 (00:50→14:30)
[2021-03-24] MEDS: SODIUM CHLORIDE 0.9% 1,000 ML IV SCH ×2 (01:00→14:30)
[2021-03-24] MEDS: ALBUTEROL SULF 2.5 MG/0.5ML(0.5%) NEB SOLN NEB SCH ×6 (02:28→22:35)
[2021-03-24] MEDS: IPRATROPIUM BROM 0.5 MG/2.5ML INH SOL NEB SCH ×6 (02:28→22:35)
[2021-03-24] MEDS: PHENYLEPHRINE INJ 40 MG in SODIUM CHL 0.9% 246 ML IV SCH ×2 (05:55→21:31)
[2021-03-24] MEDS: SODIUM CHLOR 0.9% PF (SALINE LOCK) 10ML VIAL/SYR IV SCH ×3 (06:00→21:31)
[2021-03-24] MEDS: CEFEPIME 1 GM in SODIUM CHL 0.9% 50 ML IV SCH ×3 (06:38→23:00)
[2021-03-24] MEDS: BUDESONIDE (INHALATION) 0.5 MG/2 ML NEB NEB SCH ×2 (06:40→22:35)
[2021-03-24] MEDS: FUROSEMIDE 20 MG/2 ML VIAL IV SCH ×2 (06:41→18:13)
[2021-03-24 09:59] LABS: Basophils # (auto) 0 10 ^3/uL (0-0.2); Lymphocytes # (auto) 0.5 10 ^3/uL (0.4-5.4); Monocytes # (auto) 0.9 10 ^3/uL (0-1.3); Red Cell Distribution Width 16.5 % (11.8-14.3); White Blood Cell 11.1 10^3/uL (4.4-10.8)
[2021-03-24 10:01] LABS: Basophils % (auto) 0.1 % (0.0-2.0); Eosinophils # (auto) 0.7 10 ^3/uL (0-0.8); Hematocrit 42.4 % (41.0-53.0); Hemoglobin 13.5 g/dL (13.5-17.5); Lymphocytes % (auto) 4.4 % (10.0-50.0); Mean Corpuscular Hemoglobin 26.5 pg (28.0-32.0); Mean Corpuscular Hgb Conc. 31.9 g/dL (32.0-36.0); Mean Corpuscular Volume 83.2 fL (80.0-100.0); Monocytes % (auto) 8.1 % (0.0-12.0); Neutrophils # (auto) 9.1 10 ^3/uL (1.6-8.6); Neutrophils % (auto) 81.4 % (37.0-80.0); Platelet Count (auto) 145 10^3/uL (140-450)
[2021-03-24 10:09] LABS: Albumin 2.2 g/dL (3.4-5.0); Calcium 7.9 mg/dL (8.5-10.1); Potassium 3.9 mmol/L (3.5-5.1)
[2021-03-24 10:14] LABS: BUN/Creatinine Ratio 31.7; Total Protein 5.9 g/dL (6.4-8.2)
[2021-03-24] MEDS: FAMOTIDINE (10MG/ML) 2ML VL IV SCH (10:58)
[2021-03-24] MEDS: FLUCONAZOLE 200MG/100ML 100 ML IV SCH ×2 (10:58→11:15)
[2021-03-24] MEDS: VANCOMYCIN 1GM/250ML 250 ML IV SCH (12:15)
[2021-03-24] MEDS: MIDAZOLAM DRIP 50 mg/50mL 50 ML IV SCH (17:45)
[2021-03-24] MEDS: NOREPINEPHRINE 8 MG/250ML KIT 250 ML IV SCH (17:45)
[2021-03-24] MEDS: ACETAMINOPHEN 650 mg PER 20.3 mL UD PO PRN (20:30)
[2021-03-25] VITALS (104 sets, daily range): BP systolic 86–119; BP diastolic 45–85
[2021-03-25] MEDS: ALBUTEROL SULF 2.5 MG/0.5ML(0.5%) NEB SOLN NEB SCH ×6 (03:05→21:51)
[2021-03-25] MEDS: IPRATROPIUM BROM 0.5 MG/2.5ML INH SOL NEB SCH ×6 (03:05→21:51)
[2021-03-25] MEDS: FUROSEMIDE 20 MG/2 ML VIAL IV SCH ×2 (05:56→18:12)
[2021-03-25] MEDS: SODIUM CHLOR 0.9% PF (SALINE LOCK) 10ML VIAL/SYR IV SCH ×3 (05:56→23:00)
[2021-03-25] MEDS: CEFEPIME 1 GM in SODIUM CHL 0.9% 50 ML IV SCH (05:57)
[2021-03-25] MEDS: BUDESONIDE (INHALATION) 0.5 MG/2 ML NEB NEB SCH ×2 (05:58→18:11)
[2021-03-25] MEDS: PROPOFOL 100 ML IV SCH ×2 (06:04→20:15)
[2021-03-25] MEDS: VANCOMYCIN 1GM/250ML 250 ML IV SCH (08:04)
[2021-03-25 10:07] LABS: Basophils # (auto) 0.1 10 ^3/uL (0-0.2); Basophils % (auto) 0.4 % (0.0-2.0); Eosinophils # (auto) 1.2 10 ^3/uL (0-0.8); Eosinophils % (auto) 9.6 % (0.0-7.0); Hematocrit 40.1 % (41.0-53.0); Hemoglobin 13.1 g/dL (13.5-17.5); Lymphocytes # (auto) 0.6 10 ^3/uL (0.4-5.4); Lymphocytes % (auto) 4.5 % (10.0-50.0); Mean Corpuscular Hemoglobin 27.2 pg (28.0-32.0); Mean Corpuscular Hgb Conc. 32.7 g/dL (32.0-36.0); Mean Corpuscular Volume 83.3 fL (80.0-100.0); Monocytes # (auto) 0.8 10 ^3/uL (0-1.3); Monocytes % (auto) 5.9 % (0.0-12.0); Neutrophils # (auto) 10.1 10 ^3/uL (1.6-8.6); Neutrophils % (auto) 79.6 % (37.0-80.0); Nucleated Red Blood Cells % 0.1 %; Platelet Count (auto) 168 10^3/uL (140-450); Red Blood Cells 4.81 10^6/uL (4.5-5.90); Red Cell Distribution Width 16.4 % (11.8-14.3); White Blood Cell 12.7 10^3/uL (4.4-10.8)
[2021-03-25] MEDS: FAMOTIDINE (10MG/ML) 2ML VL IV SCH (10:18)
[2021-03-25] MEDS: levoFLOXacin 500MG 100 ML IV SCH (10:18)
[2021-03-25 10:24] LABS: Calcium 7.8 mg/dL (8.5-10.1); Total Protein 5.9 g/dL (6.4-8.2)
[2021-03-25] MEDS: SODIUM CHLORIDE 0.9% 1,000 ML IV SCH ×2 (12:55→23:00)
[2021-03-25] MEDS: PHENYLEPHRINE INJ 40 MG in SODIUM CHL 0.9% 246 ML IV SCH (14:55)
[2021-03-25] MEDS: ACETAMINOPHEN 650 mg PER 20.3 mL UD PO PRN (15:45)
[2021-03-25] MEDS: MIDAZOLAM DRIP 50 mg/50mL 50 ML IV SCH (18:00)
[2021-03-25] MEDS: NOREPINEPHRINE 8 MG/250ML KIT 250 ML IV SCH (18:00)
[2021-03-26] VITALS (107 sets, daily range): BP systolic 93–125; BP diastolic 44–69
[2021-03-26] MEDS: PROPOFOL 100 ML IV SCH (00:14)
[2021-03-26] MEDS: IPRATROPIUM BROM 0.5 MG/2.5ML INH SOL NEB SCH ×6 (01:55→21:59)
[2021-03-26] MEDS: ALBUTEROL SULF 2.5 MG/0.5ML(0.5%) NEB SOLN NEB SCH ×6 (01:55→21:59)
[2021-03-26 04:17] LABS: Basophils # (auto) 0.1 10 ^3/uL (0-0.2); Basophils % (auto) 0.8 % (0.0-2.0); Eosinophils # (auto) 1.1 10 ^3/uL (0-0.8); Eosinophils % (auto) 7.7 % (0.0-7.0); Hematocrit 39.8 % (41.0-53.0); Hemoglobin 12.8 g/dL (13.5-17.5); Lymphocytes # (auto) 0.7 10 ^3/uL (0.4-5.4); Lymphocytes % (auto) 5.1 % (10.0-50.0); Mean Corpuscular Hemoglobin 26.7 pg (28.0-32.0); Mean Corpuscular Hgb Conc. 32.2 g/dL (32.0-36.0); Mean Corpuscular Volume 82.8 fL (80.0-100.0); Monocytes # (auto) 0.9 10 ^3/uL (0-1.3); Monocytes % (auto) 6.5 % (0.0-12.0); Neutrophils # (auto) 11.6 10 ^3/uL (1.6-8.6); Neutrophils % (auto) 79.9 % (37.0-80.0); Nucleated Red Blood Cells % 0.1 %; Platelet Count (auto) 290 10^3/uL (140-450); Red Blood Cells 4.81 10^6/uL (4.5-5.90); Red Cell Distribution Width 16.6 % (11.8-14.3); White Blood Cell 14.5 10^3/uL (4.4-10.8)
[2021-03-26 04:36] LABS: Potassium 4.6 mmol/L (3.5-5.1)
[2021-03-26 04:42] LABS: BUN/Creatinine Ratio 28.7; Calcium 8.2 mg/dL (8.5-10.1)
[2021-03-26] MEDS: FUROSEMIDE 20 MG/2 ML VIAL IV SCH ×2 (05:38→18:04)
[2021-03-26] MEDS: SODIUM CHLOR 0.9% PF (SALINE LOCK) 10ML VIAL/SYR IV SCH ×3 (05:38→21:14)
[2021-03-26] MEDS: PHENYLEPHRINE INJ 40 MG in SODIUM CHL 0.9% 246 ML IV SCH ×2 (08:34→21:15)
[2021-03-26] MEDS: BUDESONIDE (INHALATION) 0.5 MG/2 ML NEB NEB SCH ×2 (11:04→18:13)
[2021-03-26] MEDS: levoFLOXacin 500MG 100 ML IV SCH (11:33)
[2021-03-26] MEDS: FAMOTIDINE (10MG/ML) 2ML VL IV SCH (11:34)
[2021-03-26] MEDS: MICAFUNGIN SODIUM 100 MG in SODIUM CHL 0.9% 100 ML IV SCH (14:57)
[2021-03-26] MEDS: NOREPINEPHRINE 8 MG/250ML KIT 250 ML IV SCH (18:00)
[2021-03-26] MEDS: MIDAZOLAM DRIP 50 mg/50mL 50 ML IV SCH (18:00)
[2021-03-26] MEDS: ACETAMINOPHEN 650 mg PER 20.3 mL UD PO PRN (20:15)
[2021-03-27] VITALS (100 sets, daily range): BP systolic 93–136; BP diastolic 48–71
[2021-03-27] MEDS: IPRATROPIUM BROM 0.5 MG/2.5ML INH SOL NEB SCH ×6 (02:22→22:17)
[2021-03-27] MEDS: ALBUTEROL SULF 2.5 MG/0.5ML(0.5%) NEB SOLN NEB SCH ×6 (02:22→22:17)
[2021-03-27] MEDS: FUROSEMIDE 20 MG/2 ML VIAL IV SCH ×2 (05:24→18:30)
[2021-03-27] MEDS: SODIUM CHLOR 0.9% PF (SALINE LOCK) 10ML VIAL/SYR IV SCH ×3 (05:25→22:00)
[2021-03-27] MEDS: PROPOFOL 100 ML IV SCH (05:25)
[2021-03-27] MEDS: BUDESONIDE (INHALATION) 0.5 MG/2 ML NEB NEB SCH ×2 (07:15→18:22)
[2021-03-27] MEDS: MICAFUNGIN SODIUM 100 MG in SODIUM CHL 0.9% 100 ML IV SCH (11:20)
[2021-03-27] MEDS: levoFLOXacin 500MG 100 ML IV SCH (11:20)
[2021-03-27] MEDS: FAMOTIDINE (10MG/ML) 2ML VL IV SCH (11:21)
[2021-03-27] MEDS: PHENYLEPHRINE INJ 40 MG in SODIUM CHL 0.9% 246 ML IV SCH (17:15)
[2021-03-27] MEDS: Jevity 1.2 Cal/Fiber 1 Liter GT SCH (19:00)
[2021-03-28] VITALS (94 sets, daily range): BP systolic 106–148; BP diastolic 12–97
[2021-03-28] MEDS: IPRATROPIUM BROM 0.5 MG/2.5ML INH SOL NEB SCH ×6 (02:06→21:44)
[2021-03-28] MEDS: ALBUTEROL SULF 2.5 MG/0.5ML(0.5%) NEB SOLN NEB SCH ×6 (02:06→21:44)
[2021-03-28] MEDS: Jevity 1.2 Cal/Fiber 1 Liter GT SCH (03:51)
[2021-03-28 04:30] LABS: Eosinophils # (auto) 0.8 10 ^3/uL (0-0.8); Hemoglobin 12.8 g/dL (13.5-17.5); Red Cell Distribution Width 16.7 % (11.8-14.3)
[2021-03-28 04:35] LABS: Basophils # (auto) 0 10 ^3/uL (0-0.2); Basophils % (auto) 0.2 % (0.0-2.0); Eosinophils % (auto) 6.3 % (0.0-7.0); Lymphocytes # (auto) 0.8 10 ^3/uL (0.4-5.4); Lymphocytes % (auto) 6.4 % (10.0-50.0); Mean Corpuscular Hemoglobin 26.4 pg (28.0-32.0); Mean Corpuscular Hgb Conc. 32.1 g/dL (32.0-36.0); Mean Corpuscular Volume 82.3 fL (80.0-100.0); Monocytes % (auto) 7.9 % (0.0-12.0); Neutrophils # (auto) 10.1 10 ^3/uL (1.6-8.6); Neutrophils % (auto) 79.2 % (37.0-80.0); Platelet Count (auto) 258 10^3/uL (140-450); Red Blood Cells 4.86 10^6/uL (4.5-5.90); White Blood Cell 12.7 10^3/uL (4.4-10.8)
[2021-03-28 04:43] LABS: Potassium 4.3 mmol/L (3.5-5.1)
[2021-03-28 04:50] LABS: Albumin 2.1 g/dL (3.4-5.0); BUN/Creatinine Ratio 32.7; Bilirubin, Total 1.2 mg/dL (0.2-1.0); Calcium 7.9 mg/dL (8.5-10.1); Magnesium 2.5 mg/dL (1.6-2.6); Total Protein 6.4 g/dL (6.4-8.2)
[2021-03-28] MEDS: FUROSEMIDE 20 MG/2 ML VIAL IV SCH ×2 (05:50→17:14)
[2021-03-28] MEDS: SODIUM CHLOR 0.9% PF (SALINE LOCK) 10ML VIAL/SYR IV SCH ×3 (05:50→22:16)
[2021-03-28] MEDS: PHENYLEPHRINE INJ 40 MG in SODIUM CHL 0.9% 246 ML IV SCH (09:55)
[2021-03-28] MEDS: levoFLOXacin 500MG 100 ML IV SCH (09:57)
[2021-03-28] MEDS: FAMOTIDINE (10MG/ML) 2ML VL IV SCH (09:57)
[2021-03-28] MEDS: BUDESONIDE (INHALATION) 0.5 MG/2 ML NEB NEB SCH ×2 (09:59→21:44)
[2021-03-28] MEDS: MICAFUNGIN SODIUM 100 MG in SODIUM CHL 0.9% 100 ML IV SCH (10:29)
[2021-03-28] MEDS ORDERED: METOPROLOL TARTRATE 25 MG TAB PO ONE (10:45)
[2021-03-28] MEDS ORDERED: hydrALAZINE HCL 20 MG/ML VL IV PRN (10:45)
[2021-03-28] MEDS: AMPICILLIN INJ 1 GM in SODIUM CHL 0.9% 50 ML IV SCH ×3 (14:00→23:38)
[2021-03-28] MEDS: MIDAZOLAM DRIP 50 mg/50mL 50 ML IV SCH (16:11)
[2021-03-28 21:56] LABS: Calcium 8.6 mg/dL (8.5-10.1); Magnesium 2.6 mg/dL (1.6-2.6); Potassium 4.4 mmol/L (3.5-5.1)
[2021-03-28] MEDS: METOPROLOL TARTRATE 25 MG TAB PO SCH (22:17)
[2021-03-29] VITALS (106 sets, daily range): BP systolic 94–142; BP diastolic 52–90
[2021-03-29] MEDS: ALBUTEROL SULF 2.5 MG/0.5ML(0.5%) NEB SOLN NEB SCH ×6 (02:06→22:13)
[2021-03-29] MEDS: IPRATROPIUM BROM 0.5 MG/2.5ML INH SOL NEB SCH ×6 (02:06→22:13)
[2021-03-29] MEDS: PHENYLEPHRINE INJ 40 MG in SODIUM CHL 0.9% 246 ML IV SCH ×2 (02:35→19:15)
[2021-03-29] MEDS: MIDAZOLAM DRIP 50 mg/50mL 50 ML IV SCH ×2 (03:01→23:53)
[2021-03-29] MEDS: SODIUM CHLOR 0.9% PF (SALINE LOCK) 10ML VIAL/SYR IV SCH ×3 (05:58→22:45)
[2021-03-29] MEDS: AMPICILLIN INJ 1 GM in SODIUM CHL 0.9% 50 ML IV SCH ×4 (05:58→23:47)
[2021-03-29] MEDS: FUROSEMIDE 20 MG/2 ML VIAL IV SCH ×2 (06:10→18:17)
[2021-03-29] MEDS: BUDESONIDE (INHALATION) 0.5 MG/2 ML NEB NEB SCH ×2 (09:44→22:13)
[2021-03-29] MEDS: METOPROLOL TARTRATE 25 MG TAB PO SCH ×2 (10:00→23:47)
[2021-03-29] MEDS: MICAFUNGIN SODIUM 100 MG in SODIUM CHL 0.9% 100 ML IV SCH (10:09)
[2021-03-29] MEDS: FAMOTIDINE (10MG/ML) 2ML VL IV SCH (10:09)
[2021-03-29] MEDS: levoFLOXacin 500MG 100 ML IV SCH (10:09)
[2021-03-30] VITALS (95 sets, daily range): BP systolic 86–133; BP diastolic 49–92
[2021-03-30] MEDS: IPRATROPIUM BROM 0.5 MG/2.5ML INH SOL NEB SCH ×6 (02:10→22:11)
[2021-03-30] MEDS: ALBUTEROL SULF 2.5 MG/0.5ML(0.5%) NEB SOLN NEB SCH ×6 (02:10→22:11)
[2021-03-30] MEDS: FUROSEMIDE 20 MG/2 ML VIAL IV SCH ×2 (05:48→18:27)
[2021-03-30] MEDS: SODIUM CHLOR 0.9% PF (SALINE LOCK) 10ML VIAL/SYR IV SCH ×3 (05:48→22:00)
[2021-03-30] MEDS: AMPICILLIN INJ 1 GM in SODIUM CHL 0.9% 50 ML IV SCH ×3 (05:48→18:27)
[2021-03-30] MEDS: BUDESONIDE (INHALATION) 0.5 MG/2 ML NEB NEB SCH ×2 (05:54→18:31)
[2021-03-30] MEDS: MICAFUNGIN SODIUM 100 MG in SODIUM CHL 0.9% 100 ML IV SCH (10:00)
[2021-03-30] MEDS: levoFLOXacin 500MG 100 ML IV SCH (10:20)
[2021-03-30] MEDS: FAMOTIDINE (10MG/ML) 2ML VL IV SCH (10:21)
[2021-03-30] MEDS: METOPROLOL TARTRATE 25 MG TAB PO SCH ×2 (10:21→22:00)
[2021-03-30] MEDS: PHENYLEPHRINE INJ 40 MG in SODIUM CHL 0.9% 246 ML IV SCH (11:55)
[2021-03-31] VITALS (67 sets, daily range): BP systolic 96–130; BP diastolic 52–75
[2021-03-31] MEDS: IPRATROPIUM BROM 0.5 MG/2.5ML INH SOL NEB SCH ×4 (03:26→13:41)
[2021-03-31] MEDS: ALBUTEROL SULF 2.5 MG/0.5ML(0.5%) NEB SOLN NEB SCH ×4 (03:26→13:41)
[2021-03-31] MEDS: MIDAZOLAM DRIP 50 mg/50mL 50 ML IV SCH (06:00)
[2021-03-31] MEDS: AMPICILLIN INJ 1 GM in SODIUM CHL 0.9% 50 ML IV SCH ×4 (06:16→12:22)
[2021-03-31] MEDS: FUROSEMIDE 20 MG/2 ML VIAL IV SCH (06:20)
[2021-03-31] MEDS: SODIUM CHLOR 0.9% PF (SALINE LOCK) 10ML VIAL/SYR IV SCH ×2 (06:20→14:00)
[2021-03-31] MEDS: BUDESONIDE (INHALATION) 0.5 MG/2 ML NEB NEB SCH (06:35)
[2021-03-31] MEDS: PHENYLEPHRINE INJ 40 MG in SODIUM CHL 0.9% 246 ML IV SCH (09:40)
[2021-03-31] MEDS: levoFLOXacin 500MG 100 ML IV SCH (09:42)
[2021-03-31] MEDS: FAMOTIDINE (10MG/ML) 2ML VL IV SCH (09:42)
[2021-03-31] MEDS: METOPROLOL TARTRATE 25 MG TAB PO SCH (09:43)
[2021-03-31] MEDS: MICAFUNGIN SODIUM 100 MG in SODIUM CHL 0.9% 100 ML IV SCH (10:46)
[2021-03-31] MEDS ORDERED: LORazepam 2MG/ML-1ML VIAL IV PRN (15:00)
[2021-03-31] MEDS ORDERED: MORPHINE SULF INJ 2 MG/ML SYRINGE 1ML IV PRN (15:00)
== END 2021-03-31 19:08 | disposition hospice, home (50) | DRG 870 ==
LOC: ER 17:40 → EDBD 17:40 → EDUNIT# 17:40 → ICU WEST 23:53
PROVIDERS: ADMIT Nurse Practitioner Family; ATTEND Family Medicine
PROC: 5A1955Z Respiratory Ventilation, Greater than 96 Consecutive Hours (ICD-10-PCS; principal; 2021-03-15)
PROC: 0BH17EZ Insertion of Endotracheal Airway into Trachea, Via Natural or Artificial Opening (ICD-10-PCS; 2021-03-15)
PROC: 02HV33Z Insertion of Infusion Device into Superior Vena Cava, Percutaneous Approach (ICD-10-PCS; 2021-03-15)
PROC: 0D9670Z Drainage of Stomach with Drainage Device, Via Natural or Artificial Opening (ICD-10-PCS; 2021-03-15)
PROC: 06HY33Z Insertion of Infusion Device into Lower Vein, Percutaneous Approach (ICD-10-PCS; 2021-03-15)
PROC: B548ZZA Ultrasonography of Superior Vena Cava, Guidance (ICD-10-PCS; 2021-03-15)
PROC: 5A12012 Performance of Cardiac Output, Single, Manual (ICD-10-PCS; 2021-03-15)
DX: A41.1 Sepsis due to other specified staphylococcus (principal); J69.0 Pneumonitis due to inhalation of food and vomit; J96.01 Acute respiratory failure with hypoxia; I21.4 Non-ST elevation (NSTEMI) myocardial infarction; E11.10 Type 2 diabetes mellitus with ketoacidosis without coma; I46.2 Cardiac arrest due to underlying cardiac condition; G93.41 Metabolic encephalopathy; R65.21 Severe sepsis with septic shock; J96.02 Acute respiratory failure with hypercapnia; I50.33 Acute on chronic diastolic (congestive) heart failure; G93.6 Cerebral edema; N17.9 Acute kidney failure, unspecified; J44.1 Chronic obstructive pulmonary disease with (acute) exacerbation; N39.0 Urinary tract infection, site not specified; E87.2 Acidosis; D68.9 Coagulation defect, unspecified; G93.1 Anoxic brain damage, not elsewhere classified; Z20.822 Contact with and (suspected) exposure to COVID-19; I11.0 Hypertensive heart disease with heart failure; I27.20 Pulmonary hypertension, unspecified; D69.6 Thrombocytopenia, unspecified; I48.0 Paroxysmal atrial fibrillation; G25.3 Myoclonus; K21.9 Gastro-esophageal reflux disease without esophagitis
CPT/HCPCS: 31500; 36415; 36556; 36600; 51702; 70450; 71045; 71250; 74176; 80048; 80053; 80202; 81001; 82565; 82805; 82962; 83036; 83605; 83615; 83735; 83880; 83935; 84484; 85007; 85025; 85027; 85379; 85610; 85730; 87040; 87070; 87077; 87081; 87086; 87088; 87186; 87205; 87426; 92950; 93005; 93306; 93970; 94002; 94003; 94640; 95819; 96365; 96366; 96367; 99291; A4618; G0378; J0171; J0696; J1450; J1956; J2248; J2250; J2543; J2704; J3490; J7060